=== PATIENT | female | born 1955 | race Caucasian/White ===

== ENCOUNTER → 2017-02-06 | Outpatient (CLI) | payer OTHER ==
[~2017-02-06] MED LIST: ESTR62CR PV; FLAG500T PO; NEXI40CA PO; OMEP10CASR PO; SUCR1SS PO; TYLE325T5 PO
[2017-02-06 12:02] LABS: MEAN CORPUSCULAR HGB CONC 33.5 g/dl (32.0-36.5); MEAN CORPUSCULAR VOLUME 89.5 fl (80.0-96.0); RED CELL DISTRIBUTION WIDTH 12.3 % (11.5-14.5); WHITE BLOOD COUNT 5.2 K/mm3 (4.0-10.0)
[2017-02-06 12:28] LABS: ALBUMIN/GLOBULIN RATIO 1.29 (1.00-1.93); ALKALINE PHOSPHATASE 73 U/L (45-117); ALT/SGPT 31 U/L (12-78); ANION GAP 7 MEQ/L (8-16); AST/SGOT 13 U/L (15-37); BILIRUBIN,TOTAL 0.4 MG/DL (0.2-1.0); BLOOD UREA NITROGEN 17 MG/DL (7-18); CALCIUM LEVEL 9.7 MG/DL (8.8-10.2); CARBON DIOXIDE LEVEL 28 MEQ/L (21-32); CHLORIDE LEVEL 109 MEQ/L (98-107); CHOLESTEROL LEVEL 266 MG/DL (<200); CREATININE FOR GFR 0.69 MG/DL (0.55-1.02); GLOMERULAR FILTRATION RATE > 60.0 (>45); GLUCOSE, FASTING 110 MG/DL (80-110); POTASSIUM SERUM 4.8 MEQ/L (3.5-5.1); SODIUM LEVEL 144 MEQ/L (136-145); TOTAL PROTEIN 7.1 GM/DL (6.4-8.2); TRIGLYCERIDES LEVEL 288 MG/DL (<150)
== END ==
LOC: M WUC 09:06
PROVIDERS: ATTEND Family Medicine
DX: R03.0 Elevated blood-pressure reading, without diagnosis of hypertension (principal)

== ENCOUNTER → 2017-03-05 | Outpatient (CLI) | payer OTHER ==
--- NOTE | 2017-03-06 08:19 | REP ---
PELVIC ULTRASOUND: CLINICAL: Endometrial thickening. COMPARISON: 08/13/2016. TECHNIQUE: Transabdominal pelvic ultrasound followed by transvaginal examination for better evaluation of the endometrium and adnexa. FINDINGS: The bladder is unremarkable and measures 9.1 x 6.8 x 8.4 cm. Heterogeneous anteverted uterus measures 5.9 x 2.1 x 4.1 cm and includes subcentimeter nabothian cysts as well as presumed subcentimeter posterior intramural/submucosal fibroid. The endometrial complex measures 5.6 mm thickness and is essentially unchanged compared to prior examination. No focal significant uterine or endometrial abnormalities otherwise noted. The right ovary is not visualized. Left ovary appears normal and measures 2.5 x 1.2 x 1.1 cm. No pelvic fluid or adnexa mass lesion. IMPRESSION: 1. Heterogeneous anteverted uterus as described above. The endometrial complex measures 5.6 mm thickness and is essentially unchanged. Small subcentimeter nabothian cysts and two cystic subcentimeter fibroids in the posterior intramural/submucosal region suggested. 2. Normal left ovary; right ovary not visualized.
== END ==
LOC: M WHC 09:00
PROVIDERS: ATTEND Nurse Practitioner Women's Health
DX: R93.8 Abnormal findings on diagnostic imaging of other specified body structures (principal)

== ENCOUNTER 2017-04-03 17:05 | Emergency (ER) | payer OTHER ==
[~2017-04-03] VITALS: Ht 154.9 cm; Wt 93.0 kg
[2017-04-03] MEDS ORDERED: ALPR0.25 (17:24)
[2017-04-03] MEDS ORDERED: ALIG4CAP PO (17:24)
[2017-04-03] MEDS ORDERED: ESOM0.1C (17:24)
[2017-04-03] MEDS ORDERED: VITA50003 (17:24)
[2017-04-03] MEDS ORDERED: ASPIRIN 81 MG CHEW TABLET PO ONE (17:45)
[2017-04-03 17:53] LABS: BASO % 0.5 % (0.0-1.0); EOS # 0.1 K/mm3 (0.0-0.50); EOS % 1.6 % (0.0-3.0); LARGE UNSTAINED CELL # 0.1 K/mm3 (0.0-0.4); LARGE UNSTAINED CELL % 1.4 % (0.0-4.0); LYMPH # 1.7 K/mm3 (1.5-4.5); LYMPH % 21.8 % (24.0-44.0); MEAN CORPUSCULAR HEMOGLOBIN 30.4 pg (27.0-33.0); MEAN CORPUSCULAR VOLUME 89.5 fl (80.0-96.0); MONO # 0.4 K/mm3 (0.0-0.8); MONO % 5.7 % (0.0-5.0); NEUTROPHILS # 5.1 K/mm3 (1.8-7.7); NEUTROPHILS % 68.9 % (36.0-66.0); PLATELET COUNT, AUTOMATED 289 k/mm3 (150-450); RED CELL DISTRIBUTION WIDTH 12.3 % (11.5-14.5); WHITE BLOOD COUNT 7.4 K/mm3 (4.0-10.0)
[2017-04-03 18:07] LABS: ALBUMIN/GLOBULIN RATIO 1.08 (1.00-1.93); ALKALINE PHOSPHATASE 77 U/L (45-117); ALT/SGPT 35 U/L (12-78); ANION GAP 5 MEQ/L (8-16); AST/SGOT 15 U/L (15-37); BILIRUBIN,DIRECT 0.1 MG/DL (0.0-0.2); BILIRUBIN,TOTAL 0.7 MG/DL (0.2-1.0); BLOOD UREA NITROGEN 11 MG/DL (7-18); CALCIUM LEVEL 9.4 MG/DL (8.8-10.2); CARBON DIOXIDE LEVEL 29 MEQ/L (21-32); CHLORIDE LEVEL 107 MEQ/L (98-107); CREATININE FOR GFR 0.71 MG/DL (0.55-1.02); GLOMERULAR FILTRATION RATE > 60.0 (>45); GLUCOSE, FASTING 101 MG/DL (80-110); POTASSIUM SERUM 3.7 MEQ/L (3.5-5.1); SODIUM LEVEL 141 MEQ/L (136-145); TOTAL PROTEIN 7.7 GM/DL (6.4-8.2)
[2017-04-03] MEDS ORDERED: LORazepam 2 MG/ML VIAL (J2060) IV STA (20:06)
[2017-04-03 21:03] VITALS: BP 163/88
--- NOTE | 2017-04-04 02:25 | REP ---
Clinical: Chest pain . Comparison: 06/11/2008 . Findings: The mediastinum and cardiac silhouette are stable and within normal limits for portable technique. The lung pérez are clear without acute consolidation, effusion, or pneumothorax. Skeletal structures are intact. Impression: Normal portable chest x-ray Signed by Rodri Bellamy MD 04/04/2017 02:17 A
--- NOTE | 2017-04-04 08:21 | ECGEPIP ---
Stationary ECG Study [facility] - ED Test Date: 2017-04-03 Pat Name: AMERICO MCGEE Department: Room: - Gender: F It Support Manager: YAMILETH : 1955 Requested By: José Ryan Order Number: [id number] Reading MD: Trinh Alba Measurements Intervals Ladd Rate: 61 P: 28 MD: 177 QRS: -25 QRSD: 98 T: -25 QT: 421 QTc: 427 Interpretive Statements SINUS RHYTHM BORDERLINE LEFT AXIS DEVIATION NSTTW ABNORMALITY NO PRIOR FOR COMPARISON Electronically Signed On 04-04-2017 8:21:51 EDT by Trinh Alba
== END 2017-04-03 21:05 | disposition short-term general hospital (02) ==
LOC: M ED 17:56
DX: I21.4 Non-ST elevation (NSTEMI) myocardial infarction (principal); I20.0 Unstable angina; R06.02 Shortness of breath; I10 Essential (primary) hypertension; E78.00 Pure hypercholesterolemia, unspecified; K21.9 Gastro-esophageal reflux disease without esophagitis; F41.9 Anxiety disorder, unspecified; Z86.19 Personal history of other infectious and parasitic diseases; Z79.899 Other long term (current) drug therapy; Z88.8 Allergy status to other drugs, medicaments and biological substances
CPT/HCPCS: 71010; 80048; 80076; 82550; 82553; 83880; 85025; 93005; 93041; 94760; 96374; 99285; J2060

== ENCOUNTER 2017-05-17 09:30 | Outpatient (RCR) | payer OTHER ==
[~2017-05-17 09:30] MED LIST changes: +ALIG4CAP PO; +ALPR0.25; +ESOM0.1C; +VITA1CAP40
== END 2017-05-27 ==
LOC: M CR 09:30
PROVIDERS: ATTEND Internal Medicine Cardiovascular Disease
DX: Z51.89 Encounter for other specified aftercare (principal); I25.10 Atherosclerotic heart disease of native coronary artery without angina pectoris; Z98.1 Arthrodesis status

== ENCOUNTER → 2017-05-31 | Outpatient (REF) | payer OTHER | LOC: M LAB REF 12:15 | PROVIDERS: ATTEND Physician Assistant | DX: R30.0 Dysuria (principal) ==

== ENCOUNTER → 2017-06-03 | Outpatient (CLI) | payer OTHER ==
[2017-06-03 14:12] LABS: MEAN CORPUSCULAR HEMOGLOBIN 30.5 pg (27.0-33.0); MEAN CORPUSCULAR HGB CONC 33.3 g/dl (32.0-36.5); MEAN CORPUSCULAR VOLUME 91.8 fl (80.0-96.0); RED CELL DISTRIBUTION WIDTH 12.4 % (11.5-14.5); WHITE BLOOD COUNT 5.5 K/mm3 (4.0-10.0)
[2017-06-03 14:35] LABS: CALCIUM LEVEL 9.8 MG/DL (8.8-10.2); CREATININE FOR GFR 1.04 MG/DL (0.55-1.02); GLOMERULAR FILTRATION RATE 57.2 (>45); POTASSIUM SERUM 4.4 MEQ/L (3.5-5.1)
== END ==
LOC: M WUC 11:05
PROVIDERS: ATTEND Physician Assistant
DX: I25.10 Atherosclerotic heart disease of native coronary artery without angina pectoris (principal); E87.6 Hypokalemia

== ENCOUNTER → 2017-06-20 | Outpatient (CLI) | payer OTHER ==
[2017-06-20 09:39] LABS: FREE T4 0.83 NG/DL (0.76-1.46); POTASSIUM SERUM 4.8 MEQ/L (3.5-5.1)
== END ==
LOC: M WUC 08:08
PROVIDERS: ATTEND Internal Medicine Cardiovascular Disease
DX: E78.00 Pure hypercholesterolemia, unspecified (principal); I10 Essential (primary) hypertension

== ENCOUNTER 2017-06-26 10:30 | Outpatient (RCR) | payer OTHER | END 2017-06-27 | LOC: M CR 10:30 | PROVIDERS: ATTEND Internal Medicine Cardiovascular Disease | DX: Z51.89 Encounter for other specified aftercare (principal); I25.10 Atherosclerotic heart disease of native coronary artery without angina pectoris; Z98.1 Arthrodesis status ==

== ENCOUNTER 2017-07-19 14:12 | Outpatient (RCR) | payer OTHER | END 2017-07-27 | LOC: M CR 14:12 | PROVIDERS: ATTEND Internal Medicine Cardiovascular Disease | DX: Z51.89 Encounter for other specified aftercare (principal); I25.10 Atherosclerotic heart disease of native coronary artery without angina pectoris; Z98.1 Arthrodesis status ==

== ENCOUNTER → 2017-07-23 | Outpatient (CLI) | payer OTHER ==
[2017-07-23 19:14] LABS: BASO % 0.5 % (0.0-1.0); EOS # 0.1 10^3/uL (0.0-0.50); EOS % 0.8 % (0.0-3.0); IMMATURE GRANULOCYTE % 0.3 % (0-0); LYMPH # 1.1 10^3/uL (1.5-4.5); LYMPH % 18.3 % (24.0-44.0); MEAN CORPUSCULAR HEMOGLOBIN 29.6 pg (27.0-33.0); MEAN CORPUSCULAR HGB CONC 31.9 g/dl (32.0-36.5); MEAN CORPUSCULAR VOLUME 92.6 fl (80.0-96.0); MONO # 0.4 10^3/uL (0.0-0.8); MONO % 6.2 % (0.0-5.0); NEUTROPHILS # 4.4 10^3/uL (1.8-7.7); NEUTROPHILS % 73.9 % (36.0-66.0); PLATELET COUNT, AUTOMATED 326 10^3/uL (150-450); RED CELL DISTRIBUTION WIDTH 12.9 % (11.5-14.5)
[2017-07-23 19:23] LABS: INR 1.01
== END ==
LOC: M WUC 15:54
PROVIDERS: ATTEND Family Medicine
DX: R04.0 Epistaxis (principal); E55.9 Vitamin D deficiency, unspecified

== ENCOUNTER 2017-08-02 15:13 | Outpatient (RCR) | payer OTHER | END 2017-08-27 | LOC: M CR 15:13 | PROVIDERS: ATTEND Internal Medicine Cardiovascular Disease | DX: Z51.89 Encounter for other specified aftercare (principal); I25.10 Atherosclerotic heart disease of native coronary artery without angina pectoris; Z98.1 Arthrodesis status ==

== ENCOUNTER 2017-09-05 11:35 | Outpatient (RCR) | payer SELFPAY | END 2017-09-26 | LOC: M CR 11:35 | PROVIDERS: ATTEND Internal Medicine Cardiovascular Disease | DX: I25.10 Atherosclerotic heart disease of native coronary artery without angina pectoris (principal) ==

== ENCOUNTER → 2017-09-17 | Outpatient (CLI) | payer OTHER ==
--- NOTE | 2017-09-17 10:56 | REPMRS ---
Patient History The patient states she had a clinical breast exam in Patient is postmenopausal and has history of other cancer at age 34. Family history of colorectal cancer in maternal aunt at age 50 or over, colorectal cancer in maternal grandmother at age 50 or over, and breast cancer in paternal grandmother under age 50. Took unspecified hormones for 6 months. Digital Woman Screen Mammo: September 17, 2017 - Exam #: [id number] Bilateral CC and MLO view(s) were taken. Technologist: Asia Palma, Technologist Prior study comparison: August 02, 2016, digital woman screen mammo performed at [facility]. January 25, 2015, digital woman screen mammo performed at [facility]. FINDINGS: There are scattered fibroglandular densities. There has been no change in the appearance of the mammogram from the prior studies. There is a mild amount of residual fibroglandular tissue which is fairly symmetric. There is no interval development of dominant mass, architectural distortion, or clustered microcalcification suggestive of malignancy. ASSESSMENT: BI-RADS/ACR category 1 mammogram. Negative. Recommendation Routine screening mammogram in 1 year (for women over age 40). This mammogram was interpreted with the aid of an FDA-approved computer-aided dectection system. Electronically Signed By: Pino Fagan MD 09/17/17 [id number]
== END ==
LOC: M WHC 08:59
PROVIDERS: ATTEND Nurse Practitioner Women's Health
DX: Z12.31 Encounter for screening mammogram for malignant neoplasm of breast (principal); Z78.0 Asymptomatic menopausal state; Z92.23 Personal history of estrogen therapy

== ENCOUNTER → 2017-09-17 | Outpatient (REF) | payer OTHER | LOC: M SFHCWAGY 09:11 | PROVIDERS: ATTEND Nurse Practitioner Women's Health | DX: Z12.4 Encounter for screening for malignant neoplasm of cervix (principal); Z12.31 Encounter for screening mammogram for malignant neoplasm of breast ==

== ENCOUNTER → 2017-10-05 | Outpatient (CLI) | payer OTHER ==
[2017-10-05 18:21] LABS: BASO % 0.6 % (0.0-1.0); EOS # 0.1 10^3/uL (0.0-0.50); EOS % 2.9 % (0.0-3.0); IMMATURE GRANULOCYTE % 0.2 % (0-0); LYMPH # 1.4 10^3/uL (1.5-4.5); LYMPH % 27.9 % (24.0-44.0); MEAN CORPUSCULAR HEMOGLOBIN 29.5 pg (27.0-33.0); MEAN CORPUSCULAR HGB CONC 31.2 g/dl (32.0-36.5); MEAN CORPUSCULAR VOLUME 94.7 fl (80.0-96.0); MONO # 0.4 10^3/uL (0.0-0.8); MONO % 8.2 % (0.0-5.0); NEUTROPHILS # 2.9 10^3/uL (1.8-7.7); NEUTROPHILS % 60.2 % (36.0-66.0); PLATELET COUNT, AUTOMATED 271 10^3/uL (150-450); RED CELL DISTRIBUTION WIDTH 13.2 % (11.5-14.5); WHITE BLOOD COUNT 4.9 10^3/uL (4.0-10.0)
[2017-10-05 18:33] LABS: ALBUMIN 4.1 GM/DL (3.2-5.2); ALBUMIN/GLOBULIN RATIO 1.37 (1.00-1.93); ALKALINE PHOSPHATASE 64 U/L (45-117); ALT/SGPT 30 U/L (12-78); ANION GAP 6 MEQ/L (8-16); AST/SGOT 17 U/L (7-37); BILIRUBIN,TOTAL 0.6 MG/DL (0.2-1.0); BLOOD UREA NITROGEN 19 MG/DL (7-18); CALCIUM LEVEL 9.4 MG/DL (8.8-10.2); CARBON DIOXIDE LEVEL 30 MEQ/L (21-32); CHLORIDE LEVEL 106 MEQ/L (98-107); CHOLESTEROL LEVEL 163 MG/DL (<200); CREATININE FOR GFR 0.71 MG/DL (0.55-1.02); GLOMERULAR FILTRATION RATE > 60.0 (>45); GLUCOSE, FASTING 107 MG/DL (80-110); POTASSIUM SERUM 4.4 MEQ/L (3.5-5.1); SODIUM LEVEL 142 MEQ/L (136-145); TOTAL PROTEIN 7.1 GM/DL (6.4-8.2); TRIGLYCERIDES LEVEL 163 MG/DL (<150)
== END ==
LOC: M WUC 08:56
PROVIDERS: ATTEND Family Medicine
DX: E55.9 Vitamin D deficiency, unspecified (principal); I25.10 Atherosclerotic heart disease of native coronary artery without angina pectoris

== ENCOUNTER → 2017-10-16 | Outpatient (CLI) | payer OTHER ==
--- NOTE | 2017-10-17 11:46 | REP ---
MRI brain without contrast: History: TIA. Right-sided numbness. Fasciculation, localized and transit in the right hand. No comparison brain imaging. Technique: Axial and sagittal imaging planes are utilized for T1 and T2-weighted scans. Sequences include spin-echo, fast spin echo, FLAIR, and diffusion weighted sequences. MRI findings: No bony calvarial lesion is seen. Craniocervical junction upper cervical cord are normal in appearance. There is no MR evidence of significant paranasal sinus disease. No intraorbital abnormality is seen. Deep facial soft tissues are unremarkable. Lateral third and fourth ventricles are normal in size and position. Fagan-white differentiation pattern is normal. There are scattered foci of T2 hyperintensity in the subcortical white matter of the frontal and parietal lobes bilaterally consistent with mild small vessel changes. There is no evidence of intracranial hemorrhage. No extra-axial fluid collection, mass, infarction or midline shift is seen. Diffusion weighted scans show no evidence to suggest acute ischemia or other cause of restricted diffusion. Impression: Minimal small vessel changes. No significant intracranial lesion. Signed by Aldo Carrion MD 10/17/2017 11:37 A
== END ==
LOC: M RAD 15:20
PROVIDERS: ATTEND Internal Medicine Cardiovascular Disease
DX: R25.3 Fasciculation (principal); R90.89 Other abnormal findings on diagnostic imaging of central nervous system

== ENCOUNTER 2017-12-23 13:10 | Outpatient (RCR) | payer SELFPAY | END 2017-12-25 | LOC: M CR 13:10 | DX: Z51.89 Encounter for other specified aftercare (principal); I25.10 Atherosclerotic heart disease of native coronary artery without angina pectoris; Z98.1 Arthrodesis status ==

== ENCOUNTER 2018-05-30 13:03 | Outpatient (RCR) | payer SELFPAY | END 2018-06-27 | LOC: M CR 13:03 | DX: Z95.5 Presence of coronary angioplasty implant and graft (principal); I25.10 Atherosclerotic heart disease of native coronary artery without angina pectoris ==

== ENCOUNTER → 2018-07-08 | Outpatient (CLI) | payer OTHER ==
[2018-07-08 12:41] LABS: BASO # 0.1 10^3/uL (0.0-0.2); BASO % 1.1 % (0.0-1.0); EOS # 0.2 10^3/uL (0.0-0.50); HEMATOCRIT 37.4 % (36.0-47.0); IMMATURE GRANULOCYTE % 0.4 % (0-3.0); LYMPH # 1.2 10^3/uL (1.5-4.5); LYMPH % 25.4 % (24.0-44.0); MEAN CORPUSCULAR HEMOGLOBIN 29.3 pg (27.0-33.0); MEAN CORPUSCULAR HGB CONC 32.1 g/dl (32.0-36.5); MEAN CORPUSCULAR VOLUME 91.2 fl (80.0-96.0); MONO # 0.3 10^3/uL (0.0-0.8); MONO % 6.8 % (0.0-5.0); NEUTROPHILS # 2.9 10^3/uL (1.8-7.7); NEUTROPHILS % 62.3 % (36.0-66.0); PLATELET COUNT, AUTOMATED 231 10^3/uL (150-450); WHITE BLOOD COUNT 4.7 10^3/uL (4.0-10.0)
[2018-07-08 13:22] LABS: ALBUMIN 3.9 GM/DL (3.2-5.2); ALKALINE PHOSPHATASE 65 U/L (45-117); ALT/SGPT 33 U/L (12-78); ANION GAP 8 MEQ/L (8-16); AST/SGOT 21 U/L (7-37); BILIRUBIN,TOTAL 0.5 MG/DL (0.2-1.0); BLOOD UREA NITROGEN 16 MG/DL (7-18); CALCIUM LEVEL 9.1 MG/DL (8.8-10.2); CARBON DIOXIDE LEVEL 27 MEQ/L (21-32); CHLORIDE LEVEL 111 MEQ/L (98-107); CREATININE FOR GFR 0.64 MG/DL (0.55-1.30); GLOMERULAR FILTRATION RATE > 60.0 (>45); GLUCOSE, FASTING 122 MG/DL (70-100); MAGNESIUM LEVEL 2.4 MG/DL (1.8-2.4); POTASSIUM SERUM 4.5 MEQ/L (3.5-5.1); SODIUM LEVEL 146 MEQ/L (136-145); TOTAL PROTEIN 6.8 GM/DL (6.4-8.2)
[2018-07-08 13:27] LABS: TOTAL 25(OH) VITAMIN D 22.7 NG/ML (30.0-100.0)
[2018-07-08 16:06] LABS: ALBUMIN/GLOBULIN RATIO 1.34 (1.00-1.93)
== END ==
LOC: M WUC 09:39
DX: R53.83 Other fatigue (principal); E55.9 Vitamin D deficiency, unspecified
CPT/HCPCS: 83735

== ENCOUNTER → 2018-10-09 | Outpatient (CLI) | payer OTHER | LOC: M WHC 14:00 | DX: Z12.31 Encounter for screening mammogram for malignant neoplasm of breast (principal); Z80.3 Family history of malignant neoplasm of breast; Z80.0 Family history of malignant neoplasm of digestive organs; Z92.29 Personal history of other drug therapy | CPT/HCPCS: 77067 ==

== ENCOUNTER → 2018-12-04 | Outpatient (CLI) | payer OTHER ==
[~2018-12-04] MED LIST changes: +ASPI81CH PO; +ATOR1TAB21; +CIPR-249 PO; +CLON1TAB8; +CLOP75TA2; +CO Q10CA PO; +FLUTISP; +METO1TAB87; +MIRA3350 PO; +NITR0.4S14; +NITR0.4S14 SL; +NORCOTAB PO; +PANT20TA2 PO; +PANT40TA3; +PROBCAP14 PO; +SERT-138 PO; -VITA1CAP40; +VITA50005; +ZOFR4TAB14 PO; +[UNRECOGNIZED DRUG - OTHER]
[2018-12-04 18:04] LABS: ALBUMIN 4.4 GM/DL (3.2-5.2); BLOOD UREA NITROGEN 15 MG/DL (7-18); CALCIUM LEVEL 9.4 MG/DL (8.8-10.2); CARBON DIOXIDE LEVEL 34 MEQ/L (21-32); CHLORIDE LEVEL 102 MEQ/L (98-107); CREATININE FOR GFR 0.79 MG/DL (0.55-1.30); GLOMERULAR FILTRATION RATE > 60.0 (>45); GLUCOSE, FASTING 112 MG/DL (70-100); PHOSPHORUS LEVEL 3.1 MG/DL (2.5-4.9); POTASSIUM SERUM 3.5 MEQ/L (3.5-5.1); SODIUM LEVEL 141 MEQ/L (136-145)
== END ==
LOC: M WUC 14:50
PROVIDERS: ATTEND Family Medicine
DX: R06.02 Shortness of breath (principal); I25.10 Atherosclerotic heart disease of native coronary artery without angina pectoris

== ENCOUNTER → 2019-01-20 | Outpatient (CLI) | payer OTHER ==
[2019-01-20 13:05] LABS: BASO # 0.1 10^3/uL (0.0-0.2); BASO % 0.8 % (0.0-1.0); EOS # 0.2 10^3/uL (0.0-0.50); EOS % 2.6 % (0.0-3.0); HEMATOCRIT 40.6 % (36.0-47.0); HEMOGLOBIN 12.9 g/dl (12.0-15.5); LYMPH # 1.5 10^3/uL (1.5-4.5); LYMPH % 22.5 % (24.0-44.0); MEAN CORPUSCULAR HEMOGLOBIN 28.9 pg (27.0-33.0); MEAN CORPUSCULAR HGB CONC 31.8 g/dl (32.0-36.5); MONO # 0.6 10^3/uL (0.0-0.8); MONO % 8.4 % (0.0-5.0); NEUTROPHILS # 4.3 10^3/uL (1.8-7.7); NEUTROPHILS % 65.5 % (36.0-66.0); PLATELET COUNT, AUTOMATED 260 10^3/uL (150-450); RED BLOOD COUNT 4.46 10^6/uL (4.00-5.40); WHITE BLOOD COUNT 6.6 10^3/uL (4.0-10.0)
[2019-01-20 13:28] LABS: ALBUMIN 4.2 GM/DL (3.2-5.2); ALT/SGPT 30 U/L (12-78); BILIRUBIN,TOTAL 0.7 MG/DL (0.2-1.0); BLOOD UREA NITROGEN 15 MG/DL (7-18); CALCIUM LEVEL 9.5 MG/DL (8.8-10.2); CARBON DIOXIDE LEVEL 30 MEQ/L (21-32); CHLORIDE LEVEL 106 MEQ/L (98-107); CHOLESTEROL LEVEL 223 MG/DL (<200); CHOLESTEROL RISK RATIO 4.955 (<5); GLOMERULAR FILTRATION RATE > 60.0 (>45); GLUCOSE, FASTING 137 MG/DL (70-100); HDL CHOLESTEROL 45 MG/DL (>40); LDL CHOLESTEROL 114 MG/DL (<100); NON-HDL-C 178 MG/DL; POTASSIUM SERUM 4.4 MEQ/L (3.5-5.1); SODIUM LEVEL 142 MEQ/L (136-145); TOTAL PROTEIN 7.2 GM/DL (6.4-8.2); TRIGLYCERIDES LEVEL 319 MG/DL (<150)
[2019-01-20 13:31] LABS: TOTAL 25(OH) VITAMIN D 20.2 NG/ML (30.0-100.0); VITAMIN B12 LEVEL 425 PG/ML (247-911)
== END ==
LOC: M WUC 08:32
PROVIDERS: ATTEND Family Medicine
DX: Z51.81 Encounter for therapeutic drug level monitoring (principal); Z79.899 Other long term (current) drug therapy; E55.9 Vitamin D deficiency, unspecified; I25.10 Atherosclerotic heart disease of native coronary artery without angina pectoris

== ENCOUNTER → 2019-07-16 | Outpatient (CLI) | payer OTHER ==
[~2019-07-16] MED LIST changes: -ASPI81CH PO; +ASPI81CH49 PO; +HYDR-3715 PO; -NORCOTAB PO
[2019-07-16 13:40] LABS: HEMATOCRIT 39.5 % (36.0-47.0); HEMOGLOBIN 12.7 g/dl (12.0-15.5); MEAN CORPUSCULAR HEMOGLOBIN 29.5 pg (27.0-33.0); MEAN CORPUSCULAR HGB CONC 32.2 g/dl (32.0-36.5); MEAN CORPUSCULAR VOLUME 91.9 fl (80.0-96.0); PLATELET COUNT, AUTOMATED 274 10^3/uL (150-450); WHITE BLOOD COUNT 5.9 10^3/uL (4.0-10.0)
[2019-07-16 13:45] LABS: ALBUMIN 4.1 GM/DL (3.2-5.2); ALT/SGPT 29 U/L (12-78); BILIRUBIN,TOTAL 0.5 MG/DL (0.2-1.0); BLOOD UREA NITROGEN 16 MG/DL (7-18); CALCIUM LEVEL 9.3 MG/DL (8.8-10.2); CARBON DIOXIDE LEVEL 30 MEQ/L (21-32); CHLORIDE LEVEL 104 MEQ/L (98-107); CHOLESTEROL LEVEL 180 MG/DL (<200); CREATININE FOR GFR 0.81 MG/DL (0.55-1.30); GLOMERULAR FILTRATION RATE > 60.0 (>45); GLUCOSE, FASTING 150 MG/DL (70-100); HDL CHOLESTEROL 50 MG/DL (>40); LDL CHOLESTEROL 85 MG/DL (<100); NON-HDL-C 130 MG/DL; SODIUM LEVEL 143 MEQ/L (136-145); TOTAL PROTEIN 7.3 GM/DL (6.4-8.2); TRIGLYCERIDES LEVEL 227 MG/DL (<150)
[2019-07-16 13:48] LABS: TOTAL 25(OH) VITAMIN D 25.1 NG/ML (30.0-100.0)
[2019-07-16 15:11] LABS: VITAMIN B12 LEVEL 249 PG/ML (247-911)
== END ==
LOC: M WUC 09:04
PROVIDERS: ATTEND Family Medicine
DX: E55.9 Vitamin D deficiency, unspecified (principal); I25.10 Atherosclerotic heart disease of native coronary artery without angina pectoris; R73.9 Hyperglycemia, unspecified; Z79.899 Other long term (current) drug therapy

== ENCOUNTER → 2019-10-12 | Outpatient (CLI) | payer MEDICARE, OTHER ==
--- NOTE | 2019-10-12 14:30 | REPMRS ---
Patient History The patient states she had a clinical breast exam in 2018. Family history of breast cancer under age 50 in paternal grandmother, colorectal cancer at age 50 or over in maternal aunt, colorectal cancer at age 50 or over in maternal grandmother. Took unspecified hormones for 6 months. Digital Woman Screen Mammo: October 12, 2019 - Exam #: [id number] Bilateral CC and MLO view(s) were taken. Technologist: Lizzeth Vieira, Technologist Prior study comparison: October 09, 2018, bilateral digital woman screen mammo performed at [facility]. September 17, 2017[facility], 2016, [facility] FINDINGS: There are scattered fibroglandular densities. There is a possible neodensity, 7 mm in diameter seen only on the craniocaudad projection images. This is not that newly apparent previously. This merits additional evaluation. There has been no other change in the appearance of the mammogram from the prior studies. There is a mild amount of scattered fibroglandular density which is fairly symmetric. There is no other interval development of dominant mass, architectural distortion, or grouped microcalcification suggestive of malignancy. 3-D tomosynthesis shows no additional findings. Assessment: BI-RADS/ACR category 0 mammogram, Incomplete: Need additional imaging evaluation and/or prior mammograms for comparison. Recommendation Ultrasound and special view mammogram of the right breast. This patient's Lifetime Breast Cancer Risk is estimated at 9.5 %. This mammogram was interpreted with the aid of an FDA-approved computer-aided dectection system. Electronically Signed By: Toni Carrion MD 10/12/19 [id number]
== END ==
LOC: M WHC 13:23
PROVIDERS: ATTEND Nurse Practitioner Women's Health
DX: Z12.31 Encounter for screening mammogram for malignant neoplasm of breast (principal)

== ENCOUNTER → 2019-10-13 | Outpatient (CLI) | payer MEDICARE, OTHER ==
--- NOTE | 2019-10-13 18:00 | REP ---
Digital diagnostic unilateral right breast mammography with CAD and focused right breast sonography: History: Screening mammography was BIRADS category zero from October 12, 2019. A 7 mm possible neodensity was seen. Comparison is also made with prior mammography from October 09, 2018 and September 17, 2017. Findings: Magnified focal spot compression CC, true MLO, and MLO views of the right breast demonstrate that the area in question compresses away to stromal elements which are felt to be unchanged from comparison mammography 2017. No spiculated density is seen. No microcalcification or architectural distortion is noted. Sonographic findings: The upper outer quadrant of the left breast is scanned sonographically. Fairly homogeneous fibroglandular elements are seen sonographically. No cyst is seen. No evidence of acoustic shadowing or architectural distortion is noted. No mass is visible. Impression: BIRADS category II benign findings. Repeat screening mammography recommended 1 year. BIRADS 2: BI-RADS/ACR category 2 mammogram. Benign Findings. This mammogram was interpreted with the aid of an FDA-approved computer-aided detection system. The patient states she had a clinical breast exam in October 16, 2019. The patient letter being requested is M1. Electronically Signed by Aldo Carrion MD 10/13/2019 07:07 P
== END ==
LOC: M RAD 13:40
PROVIDERS: ATTEND Nurse Practitioner Women's Health
DX: R92.2 Inconclusive mammogram (principal)

== ENCOUNTER → 2020-05-03 | Outpatient (CLI) | payer MEDICARE, OTHER ==
[~2020-05-03] MED LIST changes: -PANT20TA2 PO; +PANT20TA6 PO; +PANT40TA29; -PANT40TA3
[2020-05-03 13:04] LABS: HEMOGLOBIN 12.9 g/dl (12.0-15.5); MEAN CORPUSCULAR HEMOGLOBIN 28.7 pg (27.0-33.0); MEAN CORPUSCULAR HGB CONC 31.5 g/dl (32.0-36.5); MEAN CORPUSCULAR VOLUME 91.3 fl (80.0-96.0); PLATELET COUNT, AUTOMATED 269 10^3/uL (150-450); RED BLOOD COUNT 4.49 10^6/uL (4.00-5.40); WHITE BLOOD COUNT 6.2 10^3/uL (4.0-10.0)
[2020-05-03 16:21] LABS: BLOOD UREA NITROGEN 18 MG/DL (7-18); CALCIUM LEVEL 9.8 MG/DL (8.8-10.2); CARBON DIOXIDE LEVEL 30 MEQ/L (21-32); CHLORIDE LEVEL 106 MEQ/L (98-107); CHOLESTEROL LEVEL 233 MG/DL (<200); CHOLESTEROL RISK RATIO 5.065 (<5); CREATININE FOR GFR 0.95 MG/DL (0.55-1.30); GLOMERULAR FILTRATION RATE > 60.0 (>45); GLUCOSE, FASTING 147 MG/DL (70-100); HDL CHOLESTEROL 46 MG/DL (>40); LDL CHOLESTEROL 129 MG/DL (<100); NON-HDL-C 187 MG/DL; POTASSIUM SERUM 4.6 MEQ/L (3.5-5.1); SODIUM LEVEL 140 MEQ/L (136-145); TRIGLYCERIDES LEVEL 290 MG/DL (<150)
== END ==
LOC: M WUC 09:20
PROVIDERS: ATTEND Physician Assistant
DX: I25.10 Atherosclerotic heart disease of native coronary artery without angina pectoris (principal)

== ENCOUNTER → 2020-10-10 | Outpatient (CLI) | payer MEDICARE, OTHER ==
[2020-10-10 15:29] LABS: ALBUMIN 4.1 GM/DL (3.2-5.2); BILIRUBIN,DIRECT 0.2 MG/DL (0.0-0.2); BILIRUBIN,TOTAL 0.5 MG/DL (0.2-1.0); TOTAL PROTEIN 7.2 GM/DL (6.4-8.2)
== END ==
LOC: M WUC 09:35
PROVIDERS: ATTEND Physician Assistant
DX: K21.9 Gastro-esophageal reflux disease without esophagitis (principal); K57.92 Diverticulitis of intestine, part unspecified, without perforation or abscess without bleeding; K76.0 Fatty (change of) liver, not elsewhere classified

== ENCOUNTER → 2020-10-10 | Outpatient (CLI) | payer MEDICARE, OTHER ==
[2020-10-10 15:37] LABS: HEMOGLOBIN A1c 6.8 %
== END ==
LOC: M WUC 09:29
PROVIDERS: ATTEND Family Medicine
DX: K21.9 Gastro-esophageal reflux disease without esophagitis (principal); K57.92 Diverticulitis of intestine, part unspecified, without perforation or abscess without bleeding; K76.0 Fatty (change of) liver, not elsewhere classified; E11.9 Type 2 diabetes mellitus without complications

== ENCOUNTER → 2020-10-14 | Outpatient (CLI) | payer MEDICARE, OTHER ==
--- NOTE | 2020-10-14 08:13 | REPMRS ---
Patient History The patient states she has not had a clinical breast exam in over a year. Patient is postmenopausal and has history of other cancer at age 34. Family history of breast cancer under age 50 in paternal grandmother, colorectal cancer at age 50 or over in maternal aunt, colorectal cancer at age 50 or over in maternal grandmother. Took unspecified hormones for 6 months. Digital Woman Screen Mammo: October 14, 2020 - Exam #: [id number] Bilateral CC and MLO view(s) were taken. Technologist: Daria Alvares, Technologist Prior study comparison: October 13, 2019, right breast digital mammo diagnostic unilateral, performed at [facility]. October 12, 2019, bilateral digital woman screen mammo performed at [facility]. October 09, 2018, bilateral digital woman screen mammo performed at [facility]. September 17, 2017, digital woman screen mammo performed at [facility]. FINDINGS: There are scattered fibroglandular densities. The Volpara volumetric breast density category is:B. There has been no change in the appearance of the mammogram from the prior studies. There is a mild amount of scattered fibroglandular density which is fairly symmetric. There is no interval development of dominant mass, architectural distortion, or grouped microcalcification suggestive of malignancy. 3-D tomosynthesis shows no additional findings. Assessment: BI-RADS/ACR category 1 mammogram. Negative Mammogram. Recommendation Routine screening mammogram of both breasts in 1 year (for women over age 40). This patient's [facility] Lifetime Breast Cancer Risk is estimated at 9.0 %. This mammogram was interpreted with the aid of an FDA-approved computer-aided dectection system. Electronically Signed By: Toni Carrion MD 10/14/20 0830
== END ==
LOC: M WHC 07:09
PROVIDERS: ATTEND Nurse Practitioner Women's Health
DX: Z12.31 Encounter for screening mammogram for malignant neoplasm of breast (principal)

== ENCOUNTER → 2020-11-09 | Outpatient (CLI) | payer MEDICARE, OTHER ==
[2020-11-09 11:40] LABS: HEMATOCRIT 40.4 % (36.0-47.0); HEMOGLOBIN 12.7 g/dl (12.0-15.5); MEAN CORPUSCULAR HEMOGLOBIN 28.9 pg (27.0-33.0); MEAN CORPUSCULAR HGB CONC 31.4 g/dl (32.0-36.5); MEAN CORPUSCULAR VOLUME 91.8 fl (80.0-96.0); PLATELET COUNT, AUTOMATED 269 10^3/uL (150-450); WHITE BLOOD COUNT 6.3 10^3/uL (4.0-10.0)
[2020-11-09 12:19] LABS: ALBUMIN 4.2 GM/DL (3.2-5.2); ALT/SGPT 40 U/L (12-78); BILIRUBIN,TOTAL 0.5 MG/DL (0.2-1.0); BLOOD UREA NITROGEN 23 MG/DL (7-18); CALCIUM LEVEL 9.2 MG/DL (8.8-10.2); CARBON DIOXIDE LEVEL 32 MEQ/L (21-32); CHLORIDE LEVEL 104 MEQ/L (98-107); CHOLESTEROL LEVEL 194 MG/DL (<200); CHOLESTEROL RISK RATIO 3.803 (<5); CREATININE FOR GFR 0.84 MG/DL (0.55-1.30); GLOMERULAR FILTRATION RATE > 60.0 (>45); GLUCOSE, FASTING 161 MG/DL (70-100); HDL CHOLESTEROL 51 MG/DL (>40); LDL CHOLESTEROL 97 MG/DL (<100); NON-HDL-C 143 MG/DL; POTASSIUM SERUM 3.7 MEQ/L (3.5-5.1); SODIUM LEVEL 142 MEQ/L (136-145); TRIGLYCERIDES LEVEL 230 MG/DL (<150)
== END ==
LOC: M WUC 08:55
PROVIDERS: ATTEND Physician Assistant
DX: I50.32 Chronic diastolic (congestive) heart failure (principal)

== ENCOUNTER → 2021-05-09 | Outpatient (CLI) | payer MEDICARE, OTHER ==
[2021-05-09 08:25] LABS: HEMATOCRIT 40.7 % (36.0-47.0); HEMOGLOBIN 13.1 g/dl (12.0-15.5); MEAN CORPUSCULAR HEMOGLOBIN 28.6 pg (27.0-33.0); MEAN CORPUSCULAR HGB CONC 32.2 g/dl (32.0-36.5); MEAN CORPUSCULAR VOLUME 88.9 fl (80.0-96.0); PLATELET COUNT, AUTOMATED 262 10^3/uL (150-450); RED BLOOD COUNT 4.58 10^6/uL (4.00-5.40)
[2021-05-09 08:57] LABS: ALBUMIN 4.1 GM/DL (3.2-5.2); ALT/SGPT 52 U/L (12-78); BILIRUBIN,TOTAL 0.7 MG/DL (0.2-1.0); BLOOD UREA NITROGEN 13 MG/DL (7-18); CALCIUM LEVEL 9.2 MG/DL (8.8-10.2); CARBON DIOXIDE LEVEL 31 MEQ/L (21-32); CHLORIDE LEVEL 104 MEQ/L (98-107); CHOLESTEROL LEVEL 227 MG/DL (<200); GLOMERULAR FILTRATION RATE > 60.0 (>45); GLUCOSE, FASTING 136 MG/DL (70-100); HDL CHOLESTEROL 39 MG/DL (>40); LDL CHOLESTEROL 111 MG/DL (<100); NON-HDL-C 188 MG/DL; POTASSIUM SERUM 3.4 MEQ/L (3.5-5.1); SODIUM LEVEL 142 MEQ/L (136-145); TOTAL PROTEIN 7.4 GM/DL (6.4-8.2); TRIGLYCERIDES LEVEL 386 MG/DL (<150)
[2021-05-09 10:43] LABS: TOTAL 25(OH) VITAMIN D 25.8 NG/ML (30.0-100.0)
[2021-05-09 10:44] LABS: VITAMIN B12 LEVEL 377 PG/ML (247-911)
[2021-05-09 13:48] LABS: MALB URINE SIEMENS 36.5 MG/L; MAU/CREAT RATIO 11.1 MCG/MG (0.0-30.0)
== END ==
LOC: M LAB 07:37
PROVIDERS: ATTEND Family Medicine
DX: E55.9 Vitamin D deficiency, unspecified (principal); E78.00 Pure hypercholesterolemia, unspecified; R42 Dizziness and giddiness

== ENCOUNTER → 2021-05-09 | Outpatient (CLI) | payer MEDICARE, OTHER | LOC: M RAD 07:34 | PROVIDERS: ATTEND Physician Assistant | DX: R42 Dizziness and giddiness (principal) ==

== ENCOUNTER 2021-09-15 13:28 | Emergency (ER) | payer MEDICARE, OTHER ==
[~2021-09-15] VITALS: Ht 154.9 cm; Wt 96.8 kg
--- OUTSIDE RECORDS SUMMARY | 2021-09-15 13:40 | CCD | Continuity of Care Document ---
Author Author Fatuma WHITLOCK MD Organization Unknown Address [place] [address] Phone [phone] Care Team Providers Care Market Research Executive Name Role Phone Bishnu Castellanos MD AUTM [phone] Hazel Sharp MD AUTM [phone] Garcia Workman MD AUTM [phone] Dustin Lowry DO AUTM [phone] Higinio Wyatt MD AUTM [phone] Indy Gamboa AUTM [phone] Problems Active Problems Provider Date Electrocardiogram abnormal Js Whitlock MD Onset: 2016 Chest pain Js Whitlock MD Onset: 07/25/2017 Patient post percutaneous transluminal coronary angioplasty Js Whitlock MD Onset: 07/25/2017 Aortic valve disorder Js Whitlock MD Onset: 07/25/2017 Body mass index 30+ - obesity Js Whitlock MD Onset: Atherosclerotic heart disease of [place] coronary arter y without angina pectoris Js Whitlock MD Onset: 07/25/2017 Benign hypertensive heart disease without congestive h eart failure Js Whitlock MD Onset: 07/25/2017 Dietary management surveillance Js Whitlock MD Onset: 1 12/11/2016 Abnormal involuntary movement Js Whitlock MD Onset: Dyspnea LANA Rodriguez Onset: 09/25/2018 Chronic diastolic heart failure LANA Rodriguez Onset: 12/09/2018 Hypertensive heart disease with heart failure LANA Pfeiffer Onset: 12/09/2018 Palpitations LANA Rodriguez Onset: 01/22/2019 Obesity LANA Castle Onset: 10/27/2020 Social History Type Date Description Comments Sex Unknown ETOH Use Consumes Wine 2-3 glasses "onc e in a great while" ETOH Use Consumes Liquor 1 Candelaria's drink "once in a while" Tobacco Use Start: Unknown Patient has never smoked Smoking Status Reviewed: 04/26/21 Patient has never smoked Exercise Type/Frequency Does housework sporadica lly 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 Exercise Limitations Muscle Pain pain in jaw s, ears, both sides of neck Exercise Limitations Chest Discomfort heaviness occasionally or "pulled muscle" feeling near underarms or across top of breasts bilaterally Exercise Limitations Shortness Of Breath climbin g stairs Allergies and adverse reactions Active Allergies Criticality Reaction | Severity Comments Date Demerol Unable to assess criticality projectile v omiting 09/06/2009 Statins Unable to assess criticality intolerant 07/24/2017 Medications Active Medications SIG Qnty Indications Ordering Provide r Date Ocuvite Adult Formula Capsules 1 by mouth daily Unknown 07/04/2021 Coq-10 100mg Capsules 1 by mouth every day Unknown 04/14/2021 Atorvastatin Calcium 80mg Tablets take one tablet by mouth every night at bedtime 90tabs Faustino Anderson MD 05/05/2020 Pantoprazole Sodium 40mg Tablets D R 1 by mouth every day Garcia Workman MD 04/13/2020 Vitamin D3 1000Unit Capsules 1 by mouth every day Unknown 07/20/2019 Potassium Chloride ER 10Meq Tablet s ER take one tablet by mouth every day 90tabs I50.32 Faustino laboy MD 12/09/2018 Furosemide 40mg Tablets take one tablet by mouth every day 90tabs Js Whitlock MD 11/13/2018 Vagisil Maximum Strength 20-3% Cre am insert 1 applicator full vaginally as needed Indy Payne Arnp 07/21/2018 Tums Chewy Bites 750mg Chewtabs prn Unknown 06/24/2018 Miralax Powder mix powder into liquid and drink daily as directed Unknown 07/24/20 17 Nitrostat 0.4mg Tablets Sub 1 sl every 5min x3 as needed for chest pain 25tabs Js Whitlock MD 07/24/2017 Clopidogrel Bisulfate 75mg Tablets take one tablet by mouth every day 90tabs Js Whitlock MD 07/24/2017 Tylenol Extra Strength 500mg Table ts 1-2 by mouth as needed Unknown 07/24/2017 Metoprolol Tartrate 25mg Tablets take 1/2 tablet by mouth two times a day 90tabs Js Whitlock MD 07/24/2017 Clonazepam 1mg Tablets 1 tablet by mouth once a day at bedtime as needed Bishnu Castellanos MD 07/24/2017 Aspirin Ec 81mg Tablets DR 1 by mouth every day Dinorah Barragan NP 07/24/20 17 Sertraline HCL 100mg Tablets 1 by mouth every day Bishnu Castellanos MD 07/24/2017 Align 4mg Capsules 1 by mo [facility] every day Unknown 07/24/2017 Immunizations Description No Information Available Vital Signs Date Vital Result Comment 04/26/2021 10:53am Weight 199.00 lb Home Weight 197lb Height 61 inches 5'1" BMI (Body Mass Index) 37.6 kg/m2 Heart Rate 57 /min BP Systolic Sitting 118 mmHg Ra, large cuff BP Diastolic Sitting 74 mmHg Ra, large cuff 10/27/2020 9:45am Weight 205.00 lb Home Weight 202lb Height 61 inches 5'1" BMI (Body Mass Index) 38.7 kg/m2 Heart Rate 72 /min Respiratory Rate 16 /min nonlabored BP Systolic Sitting 132 mmHg Ra, large cuff BP Diastolic Sitting 84 mmHg Ra, large cuff Results Description No Information Available Procedures Date Code Description Status 07/06/2021 03505 Chronic Care MGMT 20 Mins Clinical Staff Time Per Calendar Month Completed 07/06/2021 99873 Chronic Care Management Services Ea Addl 20 Min Completed 05/10/2021 50323 TM Interpretation & Report Only Completed 05/10/2021 67148 Myocardial Imaging (PET) Multipl e Studies Completed 04/26/2021 60003 Office/Outpatient Established Mo d MDM 30-39 Min Completed 04/26/2021 74549 ECG 12-Lead Completed 04/14/2021 60811 Chronic Care MGMT 20 Mins Clinical Staff Time Per Calendar Month Completed 04/14/2021 85828 Chronic Care Management Services Ea Addl 20 Min Completed 03/02/2021 51372 Chronic Care MGMT 20 Mins Clinical Staff Time Per Calendar Month Completed Medical Devices Description No Information Available Encounters Type Date Location Provider Dx Diagnosis Office Visit 07/06/2021 2:27p Main Office Js Whitlock MD I50.32 Chronic diastolic (congestive) heart failure I11.0 Hypertensive heart disease w ith heart failure Office Visit 04/26/2021 10:45a Main Office LANA Castle I25 .10 Athscl heart disease of [place] coronary artery w/o ang pctrs I50.32 Chronic diastolic (congestiv e) heart failure I11.0 Hypertensive heart disease w ith heart failure I35.9 Nonrheumatic aortic valve di sorder, unspecified R94.31 Abnormal electrocardiogram [ ECG] [EKG] E66.8 Other obesity Z71.3 Dietary counseling and surve illance Office Visit 04/14/2021 2:29p Main Office Js Whitlock MD I50.32 Chronic diastolic (congestive) heart failure I25.10 Athscl heart disease of [place] coronary artery w/o ang pctrs Office Visit 03/02/2021 2:05p Main Office Js Whitlock MD I50.32 Chronic diastolic (congestive) heart failure E66.8 Other obesity Assessments Date Code Description Provider 07/06/2021 I50.32 Chronic diastolic (congestive) h eart failure Js Whitlock MD 07/06/2021 I11.0 Hypertensive heart disease with heart failure Js Whitlock MD 05/10/2021 I25.10 Atherosclerotic hear t disease of [place] coronary artery without angina pectoris Cardiac PET 04/26/2021 I25.10 Atherosclerotic heart disease of [place] coronary artery with LANA Castle 04/26/2021 I50.32 Chronic diastolic (congestive) h eart failure LANA Castle 04/26/2021 I11.0 Hypertensive heart disease with heart failure LANA Castle 04/26/2021 I35.9 Nonrheumatic aortic valve disord er, unspecified LANA Castle 04/26/2021 R94.31 Abnormal electrocardiogram [ECG] [EKG] LANA Castle 04/26/2021 E66.8 Other obesity LANA Gipson Cha, se 04/26/2021 Z71.3 Dietary counseling and surveilla nce LANA Castle 04/14/2021 I50.32 Chronic diastolic (congestive) h eart failure Js Whitlock MD 04/14/2021 I25.10 Atherosclerotic heart disease of [place] coronary artery with Js Whitlock MD 03/02/2021 I50.32 Chronic diastolic (congestive) h eart failure Js Whitlock MD 03/02/2021 E66.8 Other obesity Js Whitlock MD Plan of Treatment Future Appointment(s):* 10/26/2021 10:15 am - LANA Castle at Main Office 04/26/2021 - LANA Castle* I25.10 Atherosclerotic heart disease of [place] coronary artery with* Recommendations:* Cardiac PET ordered for further evaluation of her chest pain Continue aspirin, atorvastatin, Plavix, and metoprolol at the current dosages Advised patient to contact our office with any chest pain, shortness of breath, new or concerning symptoms * I50.32 Chronic diastolic (congestive) heart failure* Recommendations:* Continue furosemide and metoprolol at current dosages Please alert our office with a weight gain of more than 3 pounds, onset of shortness of breath, or lower extremity edema * I11.0 Hypertensive heart disease with heart failure* Recommendations:* Continue metoprolol and furosemide at the current dosages Advised patient to monitor blood pressures at home and to alert our office with readings >140/>90 * I35.9 Nonrheumatic aortic valve disorder, unspecified* Recommendations:* Plan for repeat echocardiogram [id number] * R94.31 Abnormal electrocardiogram [ECG] [EKG]* Recommendations:* No further evaluation is needed at this time. * E66.8 Other obesity * Z71.3 Dietary counseling and surveillance* Recommendations:* Recommended for patient to follow a more whole food diet. Advised patient to avoid overly processed foods and packaged foods. Advised patient to avoid sodas, juices and other liquid calories. Recommended at least 30 minutes of exercise 3 days a week. * All * Follow up:* Follow up in 6 months Schedule carotid US - ordered at the last visit Functional Status Functional Condition Comment Date Status Independent with all ADL's Activ e Mental Status Description No Information Available Referrals Description No Information Available
--- OUTSIDE RECORDS SUMMARY | 2021-09-15 13:40 | CCD | Continuity of Care Document ---
Author Author Fatuma KWON PA-C Organization Unknown Address [address] [place] [address] Phone [phone] Care Team Providers Care Authorization Specialist Name Role Phone Bishnu Castellanos MD AUT [phone] Problems Active Problems Provider Date Essential hypertension LANA Deutsch Onset: 05/04/20 19 Pure hypercholesterolemia LANA Deutsch Onset: 05/04 Social History Type Date Description Comments Sex Unknown ETOH Use Occasionally consumes alcohol Tobacco Use Start: Unknown Patient has never smoked Allergies, Adverse Reactions, Alerts Active Allergies Criticality Reaction | Severity Comments Date Demerol Unable to assess criticality 05/01/2019 Medications Active Medications SIG Qnty Indications Ordering Provide r Date Potassium Chloride ER 10Meq Capsul es ER 1 by mouth every day Unknown Atorvastatin Calcium 40mg Tablets Unknown Furosemide 40mg Tablets Unknown Sertraline HCL 100mg Tablets Unknown Clonazepam 1mg Tablets Unknown Co Q-10 200mg Capsules 1 by mouth every day Unknown Aspirin [address] Unknown Clopidogrel Bisulfate 75mg Tablets Unknown Pantoprazole Sodium 20mg Tablets DR Unknown Vitamin D3 1000Unit Capsules 1 by mouth every day Unknown Metoprolol Tartrate 25mg Tablets Unknown Align Prebiotic-Probiotic 5-1.25mg-GM Chewtabs Unknown Ibgard 90mg Capsules ER Unknown Immunizations Description No Information Available Vital Signs Date Vital Result Comment 08/31/2019 8:46am Body Temperature 98.9 F Height 60 inches 5'0" Weight 210.00 lb BMI (Body Mass Index) 41.0 kg/m2 05/21/2019 9:20am Height 60 inches 5'0" Weight 201.00 lb BMI (Body Mass Index) 39.3 kg/m2 Results Description No Information Available Procedures Date Code Description Status 07/19/202137834 Inject/Drain Joint/Bursa Major C ompleted 04/17/202188235 Inject/Drain Joint/Bursa Major C ompleted Medical Devices Description No Information Available Encounters Type Date Location Provider Dx Diagnosis Office Visit 07/19/2021 9:00a Winonaryanne Kwon PA-C M1 7.12 Unilateral primary osteoarthritis, left knee M23.222 Derang of post horn of media l mensc d/t old tear/inj, l knee Office Visit 04/17/2021 10:15a Jed Kwon PA-C M1 7.12 Unilateral primary osteoarthritis, left knee M23.222 Derang of post horn of media l mensc d/t old tear/inj, l knee Assessments Date Code Description Provider 07/19/2021 M17.12 Unilateral primary osteoarthriti s, left knee Mohan Kwon PA-C 07/19/2021 M23.222 Derangement of poste rior horn of medial meniscus due to old tear or injury, left knee Mohan Kwon PA-C 04/17/2021 M17.12 Unilateral primary osteoarthriti s, left knee Mohan Kwon PA-C 04/17/2021 M23.222 Derangement of poste rior horn of medial meniscus due to old tear or injury, left knee Mohan Kwon PA-C Plan of Treatment 07/19/2021 - Mohan Kwon PA-C* M17.12 Unilateral primary osteoarthritis, left knee* Follow up:* 3 month jennifer knee recheck w/BMS, please x-ray jennifer knees (4 views) * M23.222 Derangement of posterior horn of medial meniscus due to old tear or injury, left knee Functional Status Description No Information Available Mental Status Description No Information Available Referrals Description No Information Available
--- OUTSIDE RECORDS SUMMARY | 2021-09-15 13:40 | CCD ---
Author Author [facility] Organization [facility] Address Unknown Phone Unavailable Care Team Providers Care Child Care Education Coordinator Name Role Phone Cleve WATT MD Unavailable Unavailable Cleve WATT MD Unavailable Unavailable Cleve WATT MD Unavailable Unavailable Cleve WATT MD Unavailable Unavailable Cleve WATT MD Unavailable Unavailable Cleve WATT MD Unavailable Unavailable Cleve WATT MD Unavailable Unavailable Cleve WATT MD Unavailable Unavailable Cleve WATT MD Unavailable Unavailable Cleve WATT MD Unavailable Unavailable Cleve WATT MD Unavailable Unavailable Cleve WATT MD Unavailable Unavailable Cleve WATT MD Unavailable Unavailable Cleve WATT MD Unavailable Unavailable Cleve WATT MD Unavailable Unavailable Cleve WATT MD Unavailable Unavailable Cleve WATT MD Unavailable Unavailable Cleve WATT MD Unavailable Unavailable Cleve WATT MD Unavailable Unavailable Cleve WATT MD Unavailable Unavailable Cleve WATT MD Unavailable Unavailable Cleve WATT MD Unavailable Unavailable Cleve WATT MD Unavailable Unavailable Cleve WATT MD Unavailable Unavailable Cleve WATT MD Unavailable Unavailable Cleve WATT MD Unavailable Unavailable Cleve WATT MD Unavailable Unavailable Cleve WATT MD Unavailable Unavailable Cleve WATT MD Unavailable Unavailable Cleve WATT MD Unavailable Unavailable Cleve WATT MD Unavailable Unavailable Cleve WATT MD Unavailable Unavailable Cleve WATT MD Unavailable Unavailable Cleve WATT MD Unavailable Unavailable Cleve WATT MD Unavailable Unavailable Cleve WATT MD Unavailable Unavailable Cleve WATT MD Unavailable Unavailable Cleve WATT MD Unavailable Unavailable Cleve WATT MD Unavailable Unavailable Cleve WATT MD Unavailable Unavailable Cleve WATT MD Unavailable Unavailable Cleve WATT MD Unavailable Unavailable Cleve WATT MD Unavailable Unavailable Cleve WATT MD Unavailable Unavailable Cleve WATT MD Unavailable Unavailable Cleve WATT MD Unavailable Unavailable Cleve WATT MD Unavailable Unavailable Cleve WATT MD Unavailable Unavailable Cleve WATT MD Unavailable Unavailable Cleve WATT MD Unavailable Unavailable Cleve WATT MD Unavailable Unavailable Cleve WATT MD Unavailable Unavailable Cleve WATT MD Unavailable Unavailable Cleve WATT MD Unavailable Unavailable Kwon, M Barratt PA Unavailable Unavailable Kwon, M Barratt PA Unavailable Unavailable Kwon, M Barratt PA Unavailable Unavailable Kwon, M Barratt PA Unavailable Unavailable Kwon, M Barratt PA Unavailable Unavailable Kwon, M Barratt PA Unavailable Unavailable Kwon, M Barratt PA Unavailable Unavailable Kwon, M Barratt PA Unavailable Unavailable Kwon, M Barratt PA Unavailable Unavailable Kwon, M Barratt PA Unavailable Unavailable Kwon, M Barratt PA Unavailable Unavailable Kwon, M Barratt PA Unavailable Unavailable Kwon, M Barratt PA Unavailable Unavailable Kwon, M Barratt PA Unavailable Unavailable Kwon, M Barratt PA Unavailable Unavailable Kwon, M Barratt PA Unavailable Unavailable Kwon, M Barratt PA Unavailable Unavailable Kwon, M Barratt PA Unavailable Unavailable Kwon, M Barratt PA Unavailable Unavailable Kwon, M Barratt PA Unavailable Unavailable Kwon, M Barratt PA Unavailable Unavailable Kwon, M Barratt PA Unavailable Unavailable Kwon, M Barratt PA Unavailable Unavailable Kwon, M Barratt PA Unavailable Unavailable Kwon, M Barratt PA Unavailable Unavailable Kwon, M Barratt PA Unavailable Unavailable Kwon, M Barratt PA Unavailable Unavailable Kwon, M Barratt PA Unavailable Unavailable Kwon, M Barratt PA Unavailable Unavailable JUAN CARLOS, L DANNA PA Unavailable Unavailable JUAN CARLOS, L DANNA PA Unavailable Unavailable JUAN CARLOS, L DANNA PA Unavailable Unavailable JUAN CARLOS, L DANNA PA Unavailable Unavailable JUAN CARLOS, L DANNA PA Unavailable Unavailable JUAN CARLOS, L DANNA PA Unavailable Unavailable JUAN CARLOS, L DANNA PA Unavailable Unavailable JUAN CARLOS, L DANNA PA Unavailable Unavailable JUAN CARLOS, L DANNA PA Unavailable Unavailable JUAN CARLOS, L DANNA PA Unavailable Unavailable JUAN CARLOS, L DANNA PA Unavailable Unavailable JUAN CARLOS, L DANNA PA Unavailable Unavailable JUAN CARLOS, L DANNA PA Unavailable Unavailable JUAN CARLOS, L DANNA PA Unavailable Unavailable JUAN CARLOS, L DANNA PA Unavailable Unavailable JUAN CARLOS, L DANNA PA Unavailable Unavailable Re-disclosure Warning The records that you are about to access may contain information from federally-assisted alcohol or drug abuse programs. If such information is present, then the following federally mandated warning applies: This information has been disclosed to you from records protected by federal confidentiality rules (42 CFR part 2). The federal rules prohibit you from making any further disclosure of this information unless further disclosure is expressly permitted by the written consent of the person to whom it pertains or as otherwise permitted by 42 CFR part 2. A general authorization for the release of medical or other information is NOT sufficient for this purpose. The Federal rules restrict any use of the information to criminally investigate or prosecute any alcohol or drug abuse patient.The records that you are about to access may contain highly sensitive health information, the redisclosure of which is protected by Article 27-F of the [facility] Public Health law. If you continue you may have access to information: Regarding HIV / AIDS; Provided by facilities licensed or operated by the [facility] Office of Mental Health; or Provided by the [facility] Office for People With Developmental Disabilities. If such information is present, then the following [facility] mandated warning applies: This information has been disclosed to you from confidential records which are protected by state law. State law prohibits you from making any further disclosure of this information without the specific written consent of the person to whom it pertains, or as otherwise permitted by law. Any unauthorized further disclosure in violation of state law may result in a fine or senior living sentence or both. A general authorization for the release of medical or other information is NOT sufficient authorization for further disc losure. Family History Family Member Name Family Member Gender Family Member Status Date o f Status Description Data Source(s) Unknown Unknown Problem [facility] patients mother Unknown Male Problem [facility] ([facility]) Unknown Unknown Problem [facility] ([facility]) mother,mgf Encounters Encounter Providers Location Date Indications Data Source(s ) Office Visit Attender: Mohan SCHWARTZ Physical Therapy 09:00:00 AM EDT MED[facility] ([facility]) Office Visit Attender: NAOMI WATT MD Main Office 07/06/2021 02:27:0 0 PM EDT [facility] ([facility]) Outpatient Attender: DANNA SCHWARTZ Main Office 04/26/2021 1 0:45:00 AM EDT [facility] ([facility]) Office Visit Attender: Mohan SCHWARTZ Physical Therapy 10:15:00 AM EDT MED[facility] ([facility]) Office Visit Attender: NAOMI WATT MD Main Office 04/14/2021 02:29:0 0 PM EDT [facility] ([facility]) Office Visit Attender: NAOMI WATT MD Main Office 03/02/2021 02:05:0 0 PM EDT MED[facility] ([facility]) Office Visit Attender: NAOMI WATT MD Main Office 12/29/2020 10:16:0 0 AM EST MED[facility] ([facility]) Office Visit Attender: NAOMI WATT MD Main Office 11/23/2020 08:06:0 0 AM EST MED[facility] ([facility]) Outpatient Attender: DANNA SCHWARTZ Main Office 10/27/2020 0 8:45:00 AM EST MED[facility] ([facility]) Outpatient Attender: Mohan SCHWARTZ Physical Therapy 08:15:00 AM EST MED[facility] ([facility]) Office Visit Attender: NAOMI WATT MD Main Office 10/12/2020 10:52:0 0 AM EST [facility] ([facility]) Unknown [address] [facility] [address] 09/27/2020 12:00:00 AM EST eCW1 ([facility]) Office Visit Attender: NAOMI WATT MD Main Office 09/07/2020 01:25:0 0 PM EST MED[facility] ([facility]) Office Visit Attender: NAOMI WATT MD Main Office 08/04/2020 01:44:0 0 PM EDT MED[facility] ([facility]) Immunizations Vaccine Date Status Description Data Source(s) COVID-19 VACCINE Moderna 01/05/2021 12:00:00 AM EST completed [facility] Vaccine Series Complete: YESThis Data wa s Submitted to [facility] Via [employer]. COVID-19 VACCINE Moderna 12/07/2020 12:00:00 AM EST completed [facility] Vaccine Series Complete: NOThis Data was Submitted to [facility] Via [employer]. Medications Medication Brand Name Start Date Product Form Dose Route Admi nistrative Instructions Pharmacy Instructions Status Indications Reaction Description Data Source(s) 1 mg 07/17/2021 12:00:00 AM EDT tablet 30 TAKE ONE TABLET BY MOUTH AT BEDTIME NEEDED MAXIMUM DAILY DOSE = 1 TAKE ONE TABLET BY MOUTH AT BEDTIME NEEDED MAXIMUM DAILY DOSE = 1 SOLD: 07/19/2021 [facility] 100 mg 07/05/2021 12:00:00 AM EDT tablet 30 TAKE ONE TABLET BY MOUTH EVERY DAY TAKE ONE TABLET BY MOUTH EVERY DAY SOLD: 07/10/2021 [facility] Ocuvite Adult Formula 07/04/2021 12:00:00 AM EDT ORAL active MED[facility] ([facility]) 1 mg 06/16/2021 12:00:00 AM EDT tablet 30 TAKE 1 TAB.BY MOUTH DAILY AT BEDTIME NEEDED MAX DAILY DOSE = 1 TABLET TAKE 1 TAB.BY MOUTH DAILY AT BEDTIME NEEDED MAX DAILY DOSE = 1 TABLET SOLD: 06/17/2021 [facility] 80 mg 06/14/2021 12:00:00 AM EDT tablet 90 TAKE 1 TABLET BY MOUTH EVERY NIGHT AT BEDTIME TAKE 1 TABLET BY MOUTH EVERY NIGHT AT BEDTIME SOLD: 06/14/20 21 [facility] 80 mg 06/14/2021 12:00:00 AM EDT tablet 90 TAKE 1 TABLET BY MOUTH EVERY NIGHT AT BEDTIME TAKE 1 TABLET BY MOUTH EVERY NIGHT AT BEDTIME SOLD: 09/10/20 21 [facility] pantoprazole 40 MG Delayed Release Oral Tablet PANTOPRAZOLE SODIUM 05/31/2021 12:00:00 AM EDT tablet,delayed release (DR/EC) 90 T MANUEL 1 TABLET BY MOUTH DAILY TAKE 1 TABLET BY MOUTH DAILY SOLD: 05/31/2021 [facility] 1 mg 05/18/2021 12:00:00 AM EDT tablet 30 TAKE 1 TABLET BY MOUTH DAILY AT BEDTIME NEEDED MAX DAILY DOSE = 1 TABLET TAKE 1 TABLET BY MOUTH DAILY AT BEDTIME NEEDED MAX DAILY DOSE = 1 TABLET SOLD: 05/19/2021 [facility] 50 mcg (2,000 unit) 05/12/2021 12:00:00 AM EDT tablet 90 TAKE ONE TABLET BY MOUTH EVERY DAY TAKE ONE TABLET BY MOUTH EVERY DAY SOLD: 05/16/2021 [facility] 1 mg 04/17/2021 12:00:00 AM EDT tablet 30 TAKE ONE TABLET BY MOUTH AT BEDTIME NEEDED MAXIMUM DAILY DOSE = 1 TABLET TAKE ONE TABLET BY MOUTH AT BEDTIME NEEDED MAXIMUM DAILY DOSE = 1 TABLET SOLD: 04/19/2021 [facility] coenzyme Q10 100 MG Oral Capsule Coq-10 04/14/2021 12:00:00 AM EDT ORAL active [facility] ([facility]) 25 mg 04/10/2021 12:00:00 AM EDT tablet 90 TAKE ONE-HALF TABLET BY MOUTH TWICE A DAY TAKE ONE-HALF TABLET BY MOUTH TWICE A DAY SOLD: 07/10/2021 [facility] 25 mcg (1,000 unit) 04/10/2021 12:00:00 AM EDT tablet 90 TAKE 1 TABLET BY MOUTH ONCE A DAY TAKE 1 TABLET BY MOUTH ONCE A DAY SOLD: 04/12/2021 [facility] 25 mg 04/10/2021 12:00:00 AM EDT tablet 90 TAKE ONE-HALF TABLET BY MOUTH TWICE A DAY TAKE ONE-HALF TABLET BY MOUTH TWICE A DAY SOLD: 04/12/2021 [facility] 25 mcg (1,000 unit) 04/10/2021 12:00:00 AM EDT tablet 90 TAKE 1 TABLET BY MOUTH ONCE A DAY TAKE 1 TABLET BY MOUTH ONCE A DAY SOLD: 07/10/2021 [facility] 1 mg 03/16/2021 12:00:00 AM EDT tablet 30 TAKE 1 TABLET BY MOUTH NIGHTLY AT BEDTIME NEEDED MAX DAILY DOSE = 1 TABLET TAKE 1 TABLET BY MOUTH NIGHTLY AT BEDTIME NEEDED MAX DAILY DOSE = 1 TABLET SOLD: 03/18/2021 [facility] 0.4 mg 03/03/2021 12:00:00 AM EDT tablet, sublingual 25 PLACE 1 TAB.UNDER TONGUE EVERY 5MIN.UP TO 3 DOSES NEEDED FOR CHEST PAIN PLACE 1 TAB.UNDER TONGUE EVERY 5MIN.UP TO 3 DOSES NEEDED FOR CHEST PAIN SOLD: 03/07/2021 [facility] 75 mg 02/27/2021 12:00:00 AM EDT tablet 90 TAKE ONE TABLET BY MOUTH EVERY DAY TAKE ONE TABLET BY MOUTH EVERY DAY SOLD: 09/04/2021 [facility] 75 mg 02/27/2021 12:00:00 AM EDT tablet 90 TAKE ONE TABLET BY MOUTH EVERY DAY TAKE ONE TABLET BY MOUTH EVERY DAY SOLD: 05/31/2021 [facility] 75 mg 02/27/2021 12:00:00 AM EDT tablet 90 TAKE ONE TABLET BY MOUTH EVERY DAY TAKE ONE TABLET BY MOUTH EVERY DAY SOLD: 03/02/2021 [facility] 1 mg 02/14/2021 12:00:00 AM EDT tablet 30 TAKE ONE TABLET BY MOUTH AT BEDTIME NEEDED MAXIMUM DAILY DOSE = 1 TABLET TAKE ONE TABLET BY MOUTH AT BEDTIME NEEDED MAXIMUM DAILY DOSE = 1 TABLET SOLD: 02/15/2021 [facility] 100 mg 01/31/2021 12:00:00 AM EDT tablet 30 TAKE ONE TABLET BY MOUTH EVERY DAY TAKE ONE TABLET BY MOUTH EVERY DAY SOLD: 06/08/2021 [facility] 100 mg 01/31/2021 12:00:00 AM EDT tablet 30 TAKE ONE TABLET BY MOUTH EVERY DAY TAKE ONE TABLET BY MOUTH EVERY DAY SOLD: 04/07/2021 [facility] 100 mg 01/31/2021 12:00:00 AM EDT tablet 30 TAKE ONE TABLET BY MOUTH EVERY DAY TAKE ONE TABLET BY MOUTH EVERY DAY SOLD: 02/06/2021 [facility] 100 mg 01/31/2021 12:00:00 AM EDT tablet 30 TAKE ONE TABLET BY MOUTH EVERY DAY TAKE ONE TABLET BY MOUTH EVERY DAY SOLD: 05/07/2021 [facility] 100 mg 01/31/2021 12:00:00 AM EDT tablet 30 TAKE ONE TABLET BY MOUTH EVERY DAY TAKE ONE TABLET BY MOUTH EVERY DAY SOLD: 03/07/2021 [facility] 1 mg 01/12/2021 12:00:00 AM EDT tablet 30 TAKE ONE TABLET BY MOUTH AT BEDTIME IF NEEDED MAX OF 1 PER DAY TAKE ONE TABLET BY MOUTH AT BEDTIME IF N EEDED MAX OF 1 PER DAY SOLD: 01/14/2021 [facility] 25 mcg (1,000 unit) 01/06/2021 12:00:00 AM EST tablet 90 TAKE 1 TABLET BY MOUTH ONCE A DAY TAKE 1 TABLET BY MOUTH ONCE A DAY SOLD: 01/07/2021 [facility] 1 mg 12/14/2020 12:00:00 AM EST tablet 30 TAKE ONE TABLET BY MOUTH AT BEDTIME NEEDED MAXIMUM DAILY DOSE = 1 TABLET TAKE ONE TABLET BY MOUTH AT BEDTIME NEEDED MAXIMUM DAILY DOSE = 1 TABLET SOLD: 12/15/2020 [facility] Potassium Chloride 10 MEQ Extended Release Oral Tablet POTAS SIUM CHLORIDE 12/13/2020 12:00:00 AM EST tablet extended release 90 TAKE ONE TABLET BY MOUTH EVERY DAY TAKE ONE TABLET BY MOUTH EVERY DAY SOLD: 03/14/2021 [facility] Potassium Chloride 10 MEQ Extended Release Oral Tablet POTAS SIUM CHLORIDE 12/13/2020 12:00:00 AM EST tablet extended release 90 TAKE ONE TABLET BY MOUTH EVERY DAY TAKE ONE TABLET BY MOUTH EVERY DAY SOLD: 09/10/2021 [facility] Potassium Chloride 10 MEQ Extended Release Oral Tablet POTAS SIUM CHLORIDE 12/13/2020 12:00:00 AM EST tablet extended release 90 TAKE ONE TABLET BY MOUTH EVERY DAY TAKE ONE TABLET BY MOUTH EVERY DAY SOLD: 06/12/2021 [facility] Potassium Chloride 10 MEQ Extended Release Oral Tablet POTAS SIUM CHLORIDE 12/13/2020 12:00:00 AM EST tablet extended release 90 TAKE ONE TABLET BY MOUTH EVERY DAY TAKE ONE TABLET BY MOUTH EVERY DAY SOLD: 12/15/2020 [facility] 1 mg 11/14/2020 12:00:00 AM EST tablet 30 TAKE ONE TABLET BY MOUTH AT BEDTIME NEEDED MAXIMUM DAILY DOSE = 1 TAKE ONE TABLET BY MOUTH AT BEDTIME NEEDED MAXIMUM DAILY DOSE = 1 SOLD: 11/15/2020 [facility] pantoprazole 40 MG Delayed Release Oral Tablet PANTOPRAZOLE SODIUM 11/11/2020 12:00:00 AM EST tablet,delayed release (DR/EC) 90 T MANUEL ONE TABLET BY MOUTH EVERY DAY TAKE ONE TABLET BY MOUTH EVERY DAY SOLD: 11/13/2020 [facility] pantoprazole 40 MG Delayed Release Oral Tablet PANTOPRAZOLE SODIUM 11/11/2020 12:00:00 AM EST tablet,delayed release (DR/EC) 90 T MANUEL ONE TABLET BY MOUTH EVERY DAY TAKE ONE TABLET BY MOUTH EVERY DAY SOLD: 02/15/2021 [facility] 40 mg 10/31/2020 12:00:00 AM EST tablet 90 TAKE ONE TABLET BY MOUTH EVERY DAY TAKE ONE TABLET BY MOUTH EVERY DAY SOLD: 02/06/2021 [facility] 40 mg 10/31/2020 12:00:00 AM EST tablet 90 TAKE ONE TABLET BY MOUTH EVERY DAY TAKE ONE TABLET BY MOUTH EVERY DAY SOLD: 05/07/2021 [facility] 40 mg 10/31/2020 12:00:00 AM EST tablet 90 TAKE ONE TABLET BY MOUTH EVERY DAY TAKE ONE TABLET BY MOUTH EVERY DAY SOLD: 11/06/2020 [facility] 1 mg 10/13/2020 12:00:00 AM EST tablet 30 TAKE ONE TABLET BY MOUTH DAILY AT BEDTIME NEEDED MAXIMUM DAILY DOSE = 1 TABLET TAKE ONE TABLET BY MOUTH DAILY AT BEDTIME NEEDED MAXIMUM DAILY DOSE = 1 TABLET SOLD: 10/14/2020 [facility] 1 mg 09/13/2020 12:00:00 AM EST tablet 30 TAKE ONE TABLET BY MOUTH AT BEDTIME NEEDED MAXIMUM DAILY DOSE = 1 TABLET TAKE ONE TABLET BY MOUTH AT BEDTIME NEEDED MAXIMUM DAILY DOSE = 1 TABLET SOLD: 09/14/2020 [facility] 100 mg 07/22/2020 12:00:00 AM EDT tablet 30 TAKE ONE TABLET BY MOUTH EVERY DAY FOR 30 DAYS TAKE ONE TABLET BY MOUTH EVERY DAY FOR 30 DAYS SOLD: 021 [facility] 100 mg 07/22/2020 12:00:00 AM EDT tablet 30 TAKE ONE TABLET BY MOUTH EVERY DAY FOR 30 DAYS TAKE ONE TABLET BY MOUTH EVERY DAY FOR 30 DAYS SOLD: [facility] 100 mg 07/22/2020 12:00:00 AM EDT tablet 30 TAKE ONE TABLET BY MOUTH EVERY DAY FOR 30 DAYS TAKE ONE TABLET BY MOUTH EVERY DAY FOR 30 DAYS SOLD: 021 [facility] 100 mg 07/22/2020 12:00:00 AM EDT tablet 30 TAKE ONE TABLET BY MOUTH EVERY DAY FOR 30 DAYS TAKE ONE TABLET BY MOUTH EVERY DAY FOR 30 DAYS SOLD: 020 [facility] 100 mg 07/22/2020 12:00:00 AM EDT tablet 30 TAKE ONE TABLET BY MOUTH EVERY DAY FOR 30 DAYS TAKE ONE TABLET BY MOUTH EVERY DAY FOR 30 DAYS SOLD: 021 [facility] 100 mg 07/22/2020 12:00:00 AM EDT tablet 30 TAKE ONE TABLET BY MOUTH EVERY DAY FOR 30 DAYS TAKE ONE TABLET BY MOUTH EVERY DAY FOR 30 DAYS SOLD: 020 [facility] 25 mcg (1,000 unit) 07/11/2020 12:00:00 AM EDT tablet 90 TAKE ONE TABLET BY MOUTH EVERY DAY TAKE ONE TABLET BY MOUTH EVERY DAY SOLD: 10/10/2020 [facility] atorvastatin 80 MG Oral Tablet ATORVASTATIN CALCIUM 05/05/2020 1 2:00:00 AM EDT tablet 90 TAKE 1 TABLET BY MOUTH EVERY NIG HT AT BEDTIME TAKE 1 TABLET BY MOUTH EVERY NIGHT AT BEDTIME SOLD: 08/05/2020 [facility] 80 mg 05/05/2020 12:00:00 AM EDT tablet 90 TAKE 1 TABLET BY MOUTH EVERY NIGHT AT BEDTIME TAKE 1 TABLET BY MOUTH EVERY NIGHT AT BEDTIME SOLD: 02/07/20 21 [facility] 80 mg 05/05/2020 12:00:00 AM EDT tablet 90 TAKE 1 TABLET BY MOUTH EVERY NIGHT AT BEDTIME TAKE 1 TABLET BY MOUTH EVERY NIGHT AT BEDTIME SOLD: 11/06/19 21 [facility] 25 mg 03/22/2020 12:00:00 AM EDT tablet 90 TAKE 1/2 TABLET BY MOUTH TWO TIMES A DAY TAKE 1/2 TABLET BY MOUTH TWO TIMES A DAY SOLD: 09/20/2020 [facility] 25 mg 03/22/2020 12:00:00 AM EDT tablet 90 TAKE 1/2 TABLET BY MOUTH TWO TIMES A DAY TAKE 1/2 TABLET BY MOUTH TWO TIMES A DAY SOLD: 12/21/2020 [facility] 75 mg 01/29/2020 12:00:00 AM EDT tablet 90 TAKE ONE TABLET BY MOUTH EVERY DAY TAKE ONE TABLET BY MOUTH EVERY DAY SOLD: 07/30/2020 [facility] BLOOD SUGAR DIAGNOSTIC 01/06/2020 12:00:00 AM EDT strip 100 USE TO CHECK BLOOD GLUCOSE ONCE DAILY DIRECTED USE TO CHECK BLOOD GLUCOSE ONCE DAILY DIRECTED SOLD: 09/25/2020 [facility] Potassium Chloride 10 MEQ Extended Release Oral Tablet POTAS SIUM CHLORIDE 12/05/2019 12:00:00 AM EST tablet extended release 90 TAKE ONE TABLET BY MOUTH EVERY DAY TAKE ONE TABLET BY MOUTH EVERY DAY SOLD: 09/13/2020 [facility] Insurance Providers Payer name Policy type / Coverage type Policy ID Covered alliance party ID Covered alliance party's relationship to ramirez Policy Ramirez Plan Information [employer] [id number] Hayley [id number] [employer] [id number] Hayley [id number] [employer] U [id number] Self [id number] [employer] [id number] SP [id number] [facility] Commercial [id number] Self [id number] [employer] [id number] SP [id number] [facility] [id number] SP [id number] [facility] Commercial [id number] S elf [id number] [employer]-Commercial [id number] [facility] Commercial [id number] S elf [id number] [employer] [id number] SP [id number] [facility] Commercial [id number] S elf [id number] SELF PAY ONLY [id number] SP [id number] [facility] Commercial [id number] S elf [id number] [facility] Ppo Medigap Part B [id number] Self [id number] [employer] ([employer]) [id number] Self [id number] [employer] (H[employer]) [id number] Self [id number] [facility] o Commercial [id number] Self [id number] SELF PAY ONLY [id number] SP [id number] [employer] (HMO) [id number] Self [id number] [employer] (O) [id number] Self [id number] [facility] Commercial [id number] S elf [id number] R [facility] [id number] SP [id number] [employer] Commercial [id number] Self [id number] [employer] PI PI UMR O [id number] S [id number] MEDICARE C [id number] S [id number] [employer] [id number] [employer] [id number] [employer] [id number] SP [id number] [employer] [id number] SP [id number] [employer] [id number] SP [id number] [employer] O [id number] S [id number] [employer] O [id number] S [id number] [employer] PPO P [id number] S [id number] MEDICARE [id number] SP [id number] Problems, Conditions, and Diagnoses Code Display Name Description Problem Type Effective Dates Data Source(s) E66.8 Obesity Obesity Problem 10/27/2020 12:00:00 AM JACKIE BUSBY ([facility]) Surgeries/Procedures Procedure Description Date Indications Data Source(s) ARTHROCENTESIS ASPIR&/INJECTION MAJOR JT/BURSA 021 12:00:00 AM EDT MEDISAAC ([facility] ) OFFICE OUTPATIENT VISIT 25 MINUTES 07/19/2021 12:00:00 AM EDT MED[facility] ([facility] ) Chronic Care Management Services Ea Addl 20 Min 2020 12:00:00 AM EDT MED[facility] ([facility]) Chronic Care MGMT 20 Mins Clinical Staff Time Per Calendar M ont 07/06/2021 12:00:00 AM EDT [facility] ([facility]) MYOCRD IMAGE PET PERFUS MULTPL STUDY REST/STRESS 05/10 12:00:00 AM EDT MED[facility] ([facility]) CV STRS TST XERS&/OR RX CONT ECG I&R ONLY 05/10/2021 1 2:00:00 AM EDT MED[facility] ([facility]) ECG ROUTINE ECG W/LEAST 12 LDS W/I&R 04/26/2021 12:00: 00 AM EDT MED[facility] ([facility]) OFFICE OUTPATIENT VISIT 25 MINUTES 04/26/2021 12:00:00 AM EDT MED[facility] ([facility]) ARTHROCENTESIS ASPIR&/INJECTION MAJOR JT/BURSA 021 12:00:00 AM EDT MED[facility] ([facility] ) Chronic Care Management Services Ea Addl 20 Min 2020 12:00:00 AM EDT MED[facility] ([facility]) Chronic Care MGMT 20 Mins Clinical Staff Time Per Calendar M [facility] 04/14/2021 12:00:00 AM EDT [facility] ([facility]) Chronic Care MGMT 20 Mins Clinical Staff Time Per Calendar M [facility] 03/02/2021 12:00:00 AM EDT [facility] ([facility]) Chronic Care Management Services Ea Addl 20 Min 2020 12:00:00 AM EST [facility] ([facility]) Chronic Care MGMT 20 Mins Clinical Staff Time Per Calendar M [facility] 12/29/2020 12:00:00 AM EST [facility] ([facility]) ECHO TTHRC R-T 2D W/WOM-MODE COMPL SPEC&COLR DOP 11/30 12:00:00 AM EST [facility] ([facility]) Chronic Care Management Services Ea Addl 20 Min 2020 12:00:00 AM EST [facility] ([facility]) Chronic Care MGMT 20 Mins Clinical Staff Time Per Calendar M [facility] 11/23/2020 12:00:00 AM EST [facility] ([facility]) ECG ROUTINE ECG W/LEAST 12 LDS W/I&R 10/27/2020 12:00: 00 AM EST [facility] ([facility]) OFFICE OUTPATIENT VISIT 25 MINUTES 10/27/2020 12:00:00 AM EST [facility] ([facility]) ARTHROCENTESIS ASPIR&/INJECTION MAJOR JT/BURSA 020 12:00:00 AM EST [facility] ([facility]) Results ID Date Data Source [id number] 09/06/2021 12:00:00 AM EST [facility] Name Value Range Interpretation Code Description Data Camille rce(s) Supporting Document(s) SARS-CoV-2 (COVID-19) RNA [Presence] in Respiratory specimen by CARLA with probe detection Not detected [facility] This lab was ordered by [facility] and r eported by [facility]. ID Date Data Source [id number] 09/06/2021 12:00:00 AM EST [facility] Name Value Range Interpretation Code Description Data Camille rce(s) Supporting Document(s) SARS-COV 2 PCR (NASAL SWAB) NEGATIVE [place] [facility] This lab was ordered by Rashaad Zacarias #15 and reported by [facility]. ID Date Data Source [id number] 08/01/2021 01:10:00 PM EDT [facility] Name Value Range Interpretation Code Description Data Camille rce(s) Supporting Document(s) [id number] NOT DETECTED [facility] A Not Detected result means that SARS-Co V-2 RNA was notpresent in the specimen above the limit of detection.A Not Detected result does not rule out the possibilityof COVID-19 and should not be used as the sole basis fortreatment or patient management decisions. If COVID-19is still suspected, based on exposure history togetherwith other clinical findings, re-testing should beconsidered in the context of clinical observations andepidemiological data for patient management decisions.Test Method: Nucleic Acid Amplification Test includingreverse circle beveler polymerase chain reaction (RT-PCR)and transcr iption mediated amplification (TMA). The testmethod meets the [place] Centers for Disease Control andprevention (CDC) pre departure and arrival requirementfor viral test for COVID-19 dated November 24, 2020.Testing requirements for traveling may change with time.The patient is responsible for determining the testrequirements for each nation while they are traveling.This test has been authorized by the FDA under anEmergency Use Authorization (EUA) for use by authorizedlaboratories.Please review the "Fact Sheets" and FDA authorizedlabeling available for health care providers andpatients using the following websites:https://www.[employer]stream/home/Covid-19/HCP/NAAT/fact-behbr4wjsz s://www.[employer]/home/Covid-19/Patients/NAAT/fact-vmkvg7Tlk to the current public health emergency, [facility] is accepting samples from appropriateclinical sources collected using wide variety ofswabs and transport media for COVID-19. Not detectedtest results derived from specimens received in non-commercially manufactured viral collection kits or thosenot yet authorized by FDA for COVID-19 testing should becautiously evaluated and take extra precautions such asadditional clinical monitoring, including collectionof an additional specimen.Additional information about COVID-19 can be foundat the [employer] website:www.[facility].MediaXstream/Covid19. ID Date Data Source [id number] 07/31/2021 12:19:00 PM EDT [facility] Name Value Range Interpretation Code Description Data Camille rce(s) Supporting Document(s) SARS-COV-2 RNA RESP QL CARLA+PROBE Not detected [facility] This lab was ordered by [facility] [id number] and rep orted by [facility] [place]. ID Date Data Source [id number] 11/30/2020 09:07:00 AM EST [facility] Name Value Range Interpretation Code Description Data Camille rce(s) Supporting Document(s) Laboratory test finding (navigational concept) Laboratory test result [facility] ([facility]) ID Date Data Source [id number] 11/09/2020 10:18:00 AM EST [facility]) Name Value Range Interpretation Code Description Data Camille rce(s) Supporting Document(s) White Blood Count 6.3 4.3-10.9 [facility] Red Blood Count 4.40 4.70-6.20 [facility] Hemoglobin 12.7 13.0-17.0 [facility] ([facility]) Hematocrit 40.4 39.0-50.0 [facility] ([facility]) Platelets 269 130-400 [facility] ID Date Data Source [id number] 11/09/2020 10:18:00 AM EST [facility] ([facility] Name Value Range Interpretation Code Description Data Camille rce(s) Supporting Document(s) Triglycerides 230 [facility] ([facility] Cholesterol 194 120-200 [facility] ([facility]) Cholesterol in LDL [Mass/volume] in Serum or Plasma by calculation 97 [facility] ([facility]) HDL 51 40-60 [facility] Chol/HDL Ratio 3.803 [facility] ID Date Data Source [id number] 11/09/2020 10:18:00 AM EST [facility] ([facility] Name Value Range Interpretation Code Description Data Camille rce(s) Supporting Document(s) Albumin [Mass/volume] in Serum or Plasma 4.2 [facility] ([facility]) Alanine aminotransferase [Enzymatic activity/volume] in Serum or Pl asma 40 [facility] ([facility]) Calcium [Mass/volume] in Serum or Plasma 9.2 [facility] ([facility]) Chloride [Moles/volume] in Serum or Plasma 104 [facility] ([facility]) Carbon dioxide, total [Moles/volume] in Serum or Plasma 32 [facility] ([facility]) Potassium [Moles/volume] in Serum or Plasma 3.7 [facility] ([facility]) Alkaline phosphatase [Enzymatic activity/volume] in Serum or Plasma 9 9 [facility] ([facility]) Protein [Mass/volume] in Serum or Plasma 7.0 [facility] ([facility]) Sodium 142 [facility] Urea nitrogen [Mass/volume] in Serum or Plasma 23 [facility] ([facility]) Glucose 161 70-100 [facility] Aspartate aminotransferase [Enzymatic activity/volume] in Serum or Plasma 17 [facility] ([facility]) Creatinine For GFR 0.84 [facility] ([facility]) ID Date Data Source [id number] 10/10/2020 09:33:00 AM EST [facility] ([facility]) Name Value Range Interpretation Code Description Data Camille rce(s) Supporting Document(s) Hemoglobin A1c 6.8 % [facility]) <content>REFERENCE RANGES:</content><br/ ><content></content>
<content><=5.6% NORMAL</content>
<content>5.7-6.4% SUGGESTS IMPAIRED GLUCOSE METABOLISM/PREDIABETIC</content>
<content>>= 6.5% ABNORMAL</content>
<content></content> Estimated Average Glucose 148 mg/dL 60-110 [facility] ([facility]) ID Date Data Source [id number] 10/10/2020 09:33:00 AM EST [facility] ([facility]) Name Value Range Interpretation Code Description Data Camille rce(s) Supporting Document(s) Alt/SGPT 32 U/L 12-78 [facility] Alkaline Phosphatase 109 U/L 45-117 [facility] Ast/Sgot 14 U/L 7-37 [facility] Bilirubin,Direct 0.2 mg/dL 0.0-0.2 [facility] ([facility]) Total Protein 7.2 GM/DL 6.4-8.2 [facility] ([facility] Bilirubin,Total 0.5 mg/dL 0.2-1.0 [facility] Albumin/Globulin Ratio 1.3 1.2-2.2 [facility] ([facility]) Albumin 4.1 GM/DL 3.2-5.2 [facility] Procedure Social History Code Duration Value Status Description Data Source(s ) Smoking 04/26/2021 12:00:00 AM EDT Patient has never smoked co mpleted Patient has never smoked [facility] ([facility]) Vital Signs ID Date Data Source UNK Name Value Range Interpretation Code Description Data Source(s) Body weight 199.00 [lb_av] 199.00 [lb_av] [facility] T ([facility]) Body height 61 [in_i] 61 [in_i] [facility] ([facility]) 5'1" Body mass index (BMI) [Ratio] 37.6 kg/m2 37.6 k g/m2 [facility] ([facility]) Heart rate 57 /min 57 /min [facility] ([facility]) Systolic blood pressure--sitting 118 mm[Hg] 118 mm[Hg] [facility] ([facility]) Ra, large cuff Diastolic blood pressure--sitting 74 mm[Hg] 74 mm[Hg] [facility] ([facility]) Ra, large cuff Body weight 205.00 [lb_av] 205.00 [lb_av] [facility] T ([facility]) Body height 61 [in_i] 61 [in_i] [facility] ([facility]) 5'1" Body mass index (BMI) [Ratio] 38.7 kg/m2 38.7 k g/m2 [facility] ([facility]) Heart rate 72 /min 72 /min [facility]) Respiratory rate 16 /min 16 /min [facility] ( [facility]) nonlabored Systolic blood pressure--sitting 132 mm[Hg] 132 mm[Hg] [facility] ([facility]) Ra, large cuff Diastolic blood pressure--sitting 84 mm[Hg] 84 mm[Hg] [facility] ([facility]) Ra, large cuff
--- OUTSIDE RECORDS SUMMARY | 2021-09-15 13:40 | CCD | Continuity of Care Document ---
Author Author Fatuma KWON PA-C Organization Unknown Address [address] [place] [address] Phone [phone] Care Team Providers Care Auto Transmission Technician Name Role Phone Bishnu Castellanos MD AUT [phone] Problems Active Problems Provider Date Essential hypertension [...] Information Available Procedures Date Code Description Status 07/19/2021 73434 Office/Outpatient Established Mo d MDM 30-39 Min Completed 07/19/202172683 Inject/Drain Joint/Bursa Major C ompleted 04/17/202132932 Inject/Drain Joint/Bursa Major C ompleted Medical Devices Description No Information Available Encounters Type Date Location Provider Dx Diagnosis Office Visit 07/19/2021 9:00a Jed Kwon PA-C M1 7.12 Unilateral primary [...]
--- OUTSIDE RECORDS SUMMARY | 2021-09-15 13:40 | CCD | Continuity of Care Document ---
Author Author Fatuma WHITLOCK MD Organization Unknown Address [facility] [place] [address] Phone [phone] Care Team Providers Care Lathe Turner Name Role Phone Bishnu Castellanos MD AUTM [phone] Hazel Sharp MD AUTM [phone] Garcia Workman MD AUTM [phone] Dustin Lowry DO AUTM [phone] Higinio Wyatt MD AUTM [phone] Indy Gamboa AUTM [phone] Problems Active Problems Provider Date Electrocardiogram abnormal Js Whitlock MD Onset: 2016 Chest pain Js Whitlock MD Onset: 07/25/2017 Patient post percutaneous transluminal coronary angioplasty Js Whitlock MD Onset: 07/25/2017 Aortic valve disorder Js Whitlock MD Onset: 07/25/2017 Body mass index 30+ - obesity Js Whitlock MD Onset: 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 Js [...] Type/Frequency Does housework sporadica lly Exercise 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 Exercise Limitations Muscle Pain pain in [...] 07/24/2017 Align 4mg Capsules 1 by mo [facility] every day Unknown 07/24/2017 Immunizations Description No [...] Available Procedures Date Code Description Status 07/06/2021 20272 Chronic Care MGMT 20 Mins Clinical Staff Time Per Calendar Month Completed 07/06/2021 67065 Chronic Care Management Services Ea Addl 20 Min Completed 05/10/2021 25217 TM Interpretation & Report Only Completed 05/10/2021 71178 Myocardial Imaging (PET) Multipl e Studies Completed 04/26/2021 93095 Office/Outpatient Established Mo d MDM 30-39 Min Completed 04/26/2021 51806 ECG 12-Lead Completed 04/14/2021 27686 Chronic Care MGMT 20 Mins Clinical Staff Time Per Calendar Month Completed 04/14/2021 07924 Chronic Care Management Services Ea Addl 20 Min Completed 03/02/2021 05495 Chronic Care MGMT 20 Mins Clinical Staff Time Per Calendar Month Completed Medical Devices Description No Information Available Encounters Type Date Location Provider Dx Diagnosis Office Visit 07/06/2021 2:27p Main Office Js Whitlock MD I50.32 Chronic diastolic (congestive) heart failure I11.0 Hypertensive heart disease w ith heart failure Office Visit 04/26/2021 10:45a Main Office [facility] I25 .10 Athscl heart disease of ambler coronary artery w/o ang pctrs I50.32 Chronic [...] Hypertensive heart disease with heart failure Js Whiltock MD 05/10/2021 I25.10 Atherosclerotic hear t disease of ambler coronary artery without angina pectoris Cardiac PET 04/26/2021 I25.10 Atherosclerotic heart disease of ambler coronary artery with [facility] 04/26/2021 I50.32 [...] MD 04/14/2021 I25.10 Atherosclerotic heart disease of ambler coronary artery with Js Whitlock MD 03/02/2021 I50.32 Chronic diastolic (congestive) h eart failure Js Whitlock MD 03/02/2021 E66.8 Other obesity Js Whitlock MD Plan of Treatment Future Appointment(s):* 10/26/2021 10:15 am - [facility] at Main Office 04/26/2021 - [facility]* I25.10 Atherosclerotic heart disease of ambler coronary artery with* Recommendations:* Cardiac PET ordered [...] disorder, unspecified* Recommendations:* Plan for repeat echocardiogram [id number] * R94.31 Abnormal electrocardiogram [ECG] [EKG]* Recommendations:* [...]
--- NOTE | 2021-09-15 15:24 | REP ---
INDICATION: R/O DVT COMPARISON: None. TECHNIQUE: Fagan scale and color Doppler evaluation using linear high frequency transducer. FINDINGS: Ultrasound examination of the right and left lower extremity deep venous structures from the common femoral vein through the popliteal veins demonstrates normal compressibility flow and wave patterns in response to respiration and augmentation. There is no evidence for deep venous thrombosis. IMPRESSION: No evidence for deep venous thrombosis. <Electronically signed by Rodri Bellamy > 09/15/21 0034
[2021-09-15 21:44] VITALS: BP 166/88
--- OUTSIDE RECORDS SUMMARY | 2021-09-15 22:18 | CCD ---
Author Author [facility] Organization [facility] Address Unknown Phone Unavailable Care Team Providers Care Chemical Pathologist Name Role Phone Cleve WATT MD Unavailable [...] Unavailable Cleve WATT MD Unavailable Unavailable Cleve WTAT MD Unavailable Unavailable Cleve WATT MD Unavailable [...] is protected by Article 27-F of the [facility] Public Health law. If you continue you may have access to information: Regarding HIV / AIDS; Provided by facilities licensed or operated by the [facility] Office of Mental Health; or Provided by the [facility] Office for People With Developmental Disabilities. If such information is present, then the following [facility] mandated warning applies: This information has been [...] law may result in a fine or prison sentence or both. A general authorization for the release of medical or other information is NOT sufficient authorization for further disc losure. Family History Family Member Name Family Member Gender Family Member Status Date o f Status Description Data Source(s) Unknown Unknown Problem [facility] patients mother Unknown Male Problem [facility] ([facility]) Unknown Unknown Problem [facility] ([facility]) mother,mgf Encounters Encounter Providers Location Date Indications Data Source(s ) Office Visit Attender: Mohan SCHWARTZ Physical Therapy 09:00:00 AM EDT MED[facility] ([facility]) Office Visit Attender: NAOMI WATT MD Main Office 07/06/2021 02:27:0 0 PM EDT [facility] ([facility]) Outpatient Attender: DANNA SCHWARTZ Main Office 04/26/2021 1 0:45:00 AM EDT [facility] ([facility]) Office Visit Attender: Mohan SCHWARTZ Physical Therapy 10:15:00 AM EDT [facility] ([facility]) Office Visit Attender: NAOMI WATT MD Main Office 04/14/2021 02:29:0 0 PM EDT [facility] ([facility]) Office Visit Attender: NAOMI WATT MD Main Office 03/02/2021 02:05:0 0 PM EDT [facility] ([facility]) Office Visit Attender: NAOMI WATT MD Main Office 12/29/2020 10:16:0 0 AM EST [facility] ([facility]) Office Visit Attender: NAOMI WATT MD Main Office 11/23/2020 08:06:0 0 AM EST [facility] ([facility]) Outpatient Attender: DANNA SCHWARTZ Main Office 10/27/2020 0 8:45:00 AM EST [facility] ([facility]) Outpatient Attender: Mohan SCHWARTZ Physical Therapy 08:15:00 AM EST [facility] ([facility]) Office Visit Attender: NAOMI WATT MD Main Office 10/12/2020 10:52:0 0 AM EST [facility] ([facility]) [place] [address] [address] 09/27/2020 12:00:00 AM EST eCW1 ([facility]) Office Visit Attender: NAOMI WATT MD Main Office 09/07/2020 01:25:0 0 PM EST MED[facility] ([facility]) Office Visit Attender: NAOMI WATT MD Main Office 08/04/2020 01:44:0 0 PM EDT MED[facility] ([facility]) Immunizations Vaccine Date Status Description Data Source(s) COVID-19 VACCINE Moderna 01/05/2021 12:00:00 AM EST completed [facility] Vaccine Series Complete: YESThis Data wa s Submitted to [facility] Via [facility]. COVID-19 VACCINE Moderna 12/07/2020 12:00:00 AM EST completed [facility] Vaccine Series Complete: NOThis Data was Submitted to [facility] Via [facility]. Medications Medication Brand Name Start Date Product [...] AM EDT ORAL active MED[facility] ([facility]) 1 mg 06/16/2021 12:00:00 AM EDT tablet [...] ORAL active [facility] ([facility]) 25 mg 04/10/2021 12:00:00 AM EDT tablet [...] TABLET BY MOUTH EVERY DAY SOLD: 06/08/2021 [facility] 100 mg 01/31/2021 12:00:00 AM [...] BY MOUTH EVERY DAY SOLD: 11/13/2020 [facility] pantoprazole 40 MG Delayed Release Oral Tablet [...] type / Coverage type Policy ID Covered libertarian ID Covered libertarian's relationship to ramirez Policy Ramirez Plan Information [employer] [id number] Hayley [id number] [employer] [id number] Hayley [id number] [employer] U [id number] Self [id number] [employer] [id number] SP [id number] [facility] Commercial [id number] Self [id number] [employer] [id number] SP [id number] [facility] [id number] SP [id number] [facility] Commercial [id number] S elf [id number] [employer]SI-Commercial [id number] [facility] Commercial [id number] S elf [id number] [employer] [id number] SP [id number] [facility] Commercial [id number] S elf [id number] SELF PAY ONLY [id number] SP [id number] [facility] Commercial [id number] S elf [id number] [facility] Ppo Medigap Part B [id number] Self [id number] [employer] (HMO) [id number] Self [id number] [employer] (HMO) [id number] Self [id number] [facility] o Commercial [id number] Self [id number] SELF PAY ONLY [id number] SP [id number] [employer] (HMO) [id number] Self [id number] [employer] (O) [id number] Self [id number] [facility] Commercial [id number] S elf [id number] R [facility] [id number] SP [id number] [employer] Commercial [id number] Self [id number] [employer] PI PI UMR O [id number] S [id number] MEDICARE C [id number] S [id number] [employer]RE[employer]ING [id number] [employer] [id number] [employer] [id number] SP [id number] [employer] [id number] SP [id number] [employer] [id number] SP [id number] [employer] O [id number] S [id number] [employer] O [id number] S [id number] [employer] PPO P [id number] S [id number] MEDICARE [id number] SP [id number] Problems, Conditions, and Diagnoses Code Display Name Description Problem Type Effective Dates Data Source(s) E66.8 Obesity Obesity Problem 10/27/2020 12:00:00 AM JACKIE BUSBY ([facility]) Surgeries/Procedures Procedure Description Date Indications Data Source(s) ARTHROCENTESIS ASPIR&/INJECTION MAJOR JT/BURSA 021 12:00:00 AM EDT MEDISAAC ([facility] OFFICE OUTPATIENT VISIT 25 MINUTES 07/19/2021 12:00:00 AM EDT MED[facility] ([facility] ) Chronic Care Management Services Ea Addl 20 Min 2020 12:00:00 AM EDT [facility] ([facility]) Chronic Care MGMT 20 Mins Clinical Staff Time Per Calendar M ont 07/06/2021 12:00:00 AM EDT MEDENT ([facility]) MYOCRD IMAGE PET PERFUS MULTPL STUDY REST/STRESS 05/10 12:00:00 AM EDT MED[facility] ([facility]) CV STRS TST XERS&/OR RX CONT ECG I&R ONLY 05/10/2021 1 2:00:00 AM EDT MED[facility] ([facility]) ECG ROUTINE ECG W/LEAST 12 LDS W/I&R 04/26/2021 12:00: 00 AM EDT MED[facility] ([facility]) OFFICE OUTPATIENT VISIT 25 MINUTES 04/26/2021 12:00:00 AM EDT MED[facility] ([facility]) ARTHROCENTESIS ASPIR&/INJECTION MAJOR JT/BURSA 021 12:00:00 AM EDT [facility] ([facility] ) Chronic Care Management Services Ea Addl 20 Min 2020 12:00:00 AM EDT [facility] ([facility]) Chronic Care MGMT 20 Mins Clinical Staff Time Per Calendar M [facility] 04/14/2021 12:00:00 AM EDT MEDENT ([facility]) Chronic Care MGMT 20 Mins Clinical Staff Time Per Calendar M [facility] 03/02/2021 12:00:00 AM EDT MED[facility] ([facility]) Chronic Care Management Services Ea Addl 20 Min 2020 12:00:00 AM EST MED[facility] ([facility]) Chronic Care MGMT 20 Mins Clinical Staff Time Per Calendar M [facility] 12/29/2020 12:00:00 AM EST MED[facility] ([facility]) ECHO TTHRC R-T 2D W/WOM-MODE COMPL SPEC&COLR DOP 11/30 12:00:00 AM EST MED[facility] ([facility]) Chronic Care Management Services Ea Addl 20 Min 2020 12:00:00 AM EST MED[facility] ([facility]) Chronic Care MGMT 20 Mins Clinical Staff Time Per Calendar M [facility] 11/23/2020 12:00:00 AM EST MED[facility] ([facility]) ECG ROUTINE ECG W/LEAST 12 LDS W/I&R 10/27/2020 12:00: 00 AM EST [facility] ([facility]) OFFICE OUTPATIENT VISIT 25 MINUTES 10/27/2020 12:00:00 AM EST MED[facility] ([facility]) ARTHROCENTESIS ASPIR&/INJECTION MAJOR JT/BURSA 020 12:00:00 AM EST [facility] ([facility]) Results ID Date Data Source [id number] 09/06/2021 12:00:00 AM EST [facility] Name Value Range Interpretation Code Description Data Camille rce(s) Supporting Document(s) SARS-CoV-2 (COVID-19) RNA [Presence] in Respiratory specimen by CARLA with probe detection Not detected [facility] This lab was ordered by [employer] and r eported by [employer]. ID Date Data Source [id number] 09/06/2021 12:00:00 AM EST [facility] Name Value Range Interpretation Code Description Data Camille rce(s) Supporting Document(s) SARS-COV 2 PCR (NASAL SWAB) NEGATIVE [place] [facility] This lab was ordered by Rashaad Zacarias #15 and reported by [employer]. ID Date Data Source [id number] 08/01/2021 01:10:00 PM EDT [facility] Name Value Range Interpretation Code Description Data Camille rce(s) Supporting Document(s) [id number] NOT DETECTED [facility] A Not Detected [...] decisions.Test Method: Nucleic Acid Amplification Test includingreverse automobile racer polymerase chain reaction (RT-PCR)and transcr iption mediated [...] health care providers andpatients using the following websites:https://www.[employer]/home/Covid-19/HCP/NAAT/fact-fgfsr7dcqh s://www.[employer]/home/Covid-19/Patients/NAAT/fact-nwbot9Jfd to the current public health emergency, [facility] is accepting samples from appropriateclinical sources collected using wide variety ofswabs and transport media for COVID-19. Not detectedtest results derived from specimens received in non-commercially manufactured viral collection kits or thosenot yet authorized by FDA for COVID-19 testing should becautiously evaluated and take extra precautions such asadditional clinical monitoring, including collectionof an additional specimen.Additional information about COVID-19 can be foundat the [employer] website:www.[facility]/Covid19. ID Date Data Source [id number] 07/31/2021 12:19:00 PM EDT [facility] Name Value Range Interpretation Code Description Data Camille rce(s) Supporting Document(s) SARS-COV-2 RNA RESP QL CARLA+PROBE Not detected [facility] This lab was ordered by [facility] [id number] and rep orted by [employer] [place]. ID Date Data Source [id number] 11/30/2020 09:07:00 AM EST [facility] ([facility]) Name Value Range Interpretation Code Description Data Camille rce(s) Supporting Document(s) Laboratory test finding (navigational concept) Laboratory test result MED[facility] ([facility]) ID Date Data Source [id number] 11/09/2020 10:18:00 AM EST [facility] Name Value Range Interpretation Code Description Data Camille rce(s) Supporting Document(s) White Blood Count 6.3 4.3-10.9 [facility] Red Blood Count 4.40 4.70-6.20 [facility] ([facility]) Hemoglobin 12.7 13.0-17.0 [facility] ([facility]) Hematocrit 40.4 39.0-50.0 [facility] ([facility]) Platelets 269 130-400 [facility] ([facility]) ID Date Data Source [id number] 11/09/2020 10:18:00 AM EST [facility] ([facility]) Name Value Range Interpretation Code Description Data Camille rce(s) Supporting Document(s) Triglycerides 230 [facility] ([facility]) Cholesterol 194 120-200 [facility] ([facility]) Cholesterol in LDL [Mass/volume] in Serum or Plasma by calculation 97 [facility] ([facility]) HDL 51 40-60 [facility] ([facility]) Chol/HDL Ratio 3.803 [facility] ([facility]) ID Date Data Source [id number] 11/09/2020 10:18:00 AM EST [facility] ([facility]) Name Value Range Interpretation Code Description Data Camille rce(s) Supporting Document(s) Albumin [Mass/volume] in Serum or Plasma 4.2 [facility] ([facility]) Alanine aminotransferase [Enzymatic activity/volume] in Serum or Pl asma 40 [facility] ([facility]) Calcium [Mass/volume] in Serum or Plasma 9.2 [facility] ([facility]) Chloride [Moles/volume] in Serum or Plasma 104 [facility] ([facility]) Carbon dioxide, total [Moles/volume] in Serum or Plasma 32 [facility] ([facility]) Potassium [Moles/volume] in Serum or Plasma 3.7 [facility] ([facility]) Alkaline phosphatase [Enzymatic activity/volume] in Serum or Plasma 9 9 [facility] ([facility]) Protein [Mass/volume] in Serum or Plasma 7.0 [facility] ([facility]) Sodium 142 [facility] ([facility] Urea nitrogen [Mass/volume] in Serum or Plasma 23 [facility] ([facility]) Glucose 161 70-100 [facility] ([facility]) Aspartate aminotransferase [Enzymatic activity/volume] in Serum or Plasma 17 [facility] ([facility]) Creatinine For GFR 0.84 [facility] ([facility]) ID Date Data Source [id number] 10/10/2020 09:33:00 AM EST [facility] ([facility]) Name Value Range Interpretation Code Description Data Camille rce(s) Supporting Document(s) Hemoglobin A1c 6.8 % [facility] ([facility]) <content>REFERENCE RANGES:</content><br/ ><content></content>
<content><=5.6% NORMAL</content>
<content>5.7-6.4% SUGGESTS IMPAIRED GLUCOSE METABOLISM/PREDIABETIC</content>
<content>>= 6.5% ABNORMAL</content>
<content></content> Estimated Average Glucose 148 mg/dL 60-110 MED[facility] ([facility]) ID Date Data Source [id number] 10/10/2020 09:33:00 AM EST [facility] ([facility]) Name Value Range Interpretation Code Description Data Camille rce(s) Supporting Document(s) Alt/SGPT 32 U/L 12-78 [facility] ([facility]) Alkaline Phosphatase 109 U/L 45-117 MED[facility] ([facility]) Ast/Sgot 14 U/L 7-37 [facility] ([facility]) Bilirubin,Direct 0.2 mg/dL 0.0-0.2 [facility] ([facility]) Total Protein 7.2 GM/DL 6.4-8.2 [facility] ([facility]) Bilirubin,Total 0.5 mg/dL 0.2-1.0 [facility] ([facility]) Albumin/Globulin Ratio 1.3 1.2-2.2 [facility] ([facility]) Albumin 4.1 GM/DL 3.2-5.2 [facility] ([facility]) Procedure Social History Code Duration Value Status Description Data Source(s ) Smoking 04/26/2021 12:00:00 AM EDT Patient has never smoked co mpleted Patient has never smoked [facility] ([facility]) Vital Signs ID Date Data Source UNK Name Value Range Interpretation Code Description Data Source(s) Body weight 199.00 [lb_av] 199.00 [lb_av] MEDEN T ([facility]) Body height 61 [in_i] 61 [in_i] [facility] ([facility]) 5'1" Body mass index (BMI) [Ratio] 37.6 kg/m2 37.6 k g/m2 MED[facility] ([facility]) Heart rate 57 /min 57 /min [facility] ([facility]) Systolic blood pressure--sitting 118 mm[Hg] 118 mm[Hg] MED[facility] ([facility]) Ra, large cuff Diastolic blood pressure--sitting 74 mm[Hg] 74 mm[Hg] MED[facility] ([facility]) Ra, large cuff Body height 61 [in_i] 61 [in_i] [facility] ([facility]) 5'1" Body mass index (BMI) [Ratio] 38.7 kg/m2 38.7 k g/m2 [facility] ([facility]) Heart rate 72 /min 72 /min [facility] ([facility]) Respiratory rate 16 /min 16 /min MED[facility] ( [facility]) nonlabored Systolic blood pressure--sitting 132 mm[Hg] 132 mm[Hg] MEDENT ([facility]) Ra, large cuff Diastolic blood pressure--sitting 84 mm[Hg] 84 mm[Hg] MED[facility] ([facility]) Ra, large cuff Body weight 205.00 [lb_av] 205.00 [lb_av] MEDEN T ([facility])
[2021-09-15 22:39] LABS: BASO # 0.1 10^3/uL (0.0-0.2); BASO % 0.5 % (0.0-1.0); EOS # 0.2 10^3/uL (0.0-0.5); EOS % 2.1 % (0.0-3.0); HEMATOCRIT 39.5 % (36.0-47.0); HEMOGLOBIN 12.8 g/dl (12.0-15.5); LYMPH # 1.8 10^3/uL (1.5-5.0); LYMPH % 19.2 % (24.0-44.0); MEAN CORPUSCULAR HEMOGLOBIN 28.8 pg (27.0-33.0); MEAN CORPUSCULAR HGB CONC 32.4 g/dl (32.0-36.5); MEAN CORPUSCULAR VOLUME 88.8 fl (80.0-96.0); MONO # 0.7 10^3/uL (0.0-0.8); MONO % 7.7 % (2.0-8.0); NEUTROPHILS # 6.5 10^3/uL (1.5-8.5); NEUTROPHILS % 70.2 % (36.0-66.0); PLATELET COUNT, AUTOMATED 268 10^3/uL (150-450); RED BLOOD COUNT 4.45 10^6/uL (4.00-5.40); WHITE BLOOD COUNT 9.2 10^3/uL (4.0-10.0)
[2021-09-15 23:14] LABS: CK-MB VALUE MASS 3.6 NG/ML (<3.6); CPK CREATINE PHOSPHOKINASE 329 U/L (26-192); MB/CK RELATIVE INDEX 1.09 (< OR =4); TROPONIN I < 0.02 NG/ML (< 0.10)
[2021-09-15 23:19] LABS: ALBUMIN 4.3 GM/DL (3.2-5.2); ALT/SGPT 40 U/L (12-78); BILIRUBIN,DIRECT 0.2 MG/DL (0.0-0.2); BILIRUBIN,TOTAL 0.6 MG/DL (0.2-1.0); BLOOD UREA NITROGEN 19 MG/DL (7-18); CALCIUM LEVEL 9.5 MG/DL (8.8-10.2); CARBON DIOXIDE LEVEL 30 MEQ/L (21-32); CHLORIDE LEVEL 107 MEQ/L (98-107); CREATININE FOR GFR 0.88 MG/DL (0.55-1.30); FREE T4 1.09 NG/DL (0.76-1.46); GLOMERULAR FILTRATION RATE > 60.0 (>45); GLUCOSE, FASTING 144 MG/DL (70-100); LIPASE 98 U/L (73-393); NT-PRO BNP 29 PG/ML (<125); POTASSIUM SERUM 3.9 MEQ/L (3.5-5.1); SODIUM LEVEL 141 MEQ/L (136-145); TOTAL PROTEIN 7.8 GM/DL (6.4-8.2)
[2021-09-16] MEDS ORDERED: METAL LOCK LOOP XX ONE (03:12)
== END 2021-09-15 23:39 | disposition home or self-care (01) ==
LOC: M ED 13:28
DX: R60.0 Localized edema (principal); E03.9 Hypothyroidism, unspecified; I25.2 Old myocardial infarction; I10 Essential (primary) hypertension; E78.5 Hyperlipidemia, unspecified; K57.30 Diverticulosis of large intestine without perforation or abscess without bleeding; K21.9 Gastro-esophageal reflux disease without esophagitis; F41.9 Anxiety disorder, unspecified; Z88.8 Allergy status to other drugs, medicaments and biological substances; Z79.899 Other long term (current) drug therapy

== ENCOUNTER → 2021-11-03 | Outpatient (CLI) | payer MEDICARE, OTHER ==
[2021-11-03 12:42] LABS: FREE T3 2.4 PG/ML (2.2-4.0); FREE T4 0.93 NG/DL (0.76-1.46); THYROID STIMULATING HORMONE 2.12 uIU/ML (0.358-3.740)
== END ==
LOC: M WUC 09:27
PROVIDERS: ATTEND Family Medicine
DX: E07.9 Disorder of thyroid, unspecified (principal)

== ENCOUNTER → 2021-12-25 | Outpatient (CLI) | payer MEDICARE, OTHER ==
[2021-12-25 17:05] LABS: HEMOGLOBIN 13.3 g/dl (12.0-15.5); MEAN CORPUSCULAR HEMOGLOBIN 28.5 pg (27.0-33.0); MEAN CORPUSCULAR HGB CONC 31.7 g/dl (32.0-36.5); MEAN CORPUSCULAR VOLUME 90.1 fl (80.0-96.0); PLATELET COUNT, AUTOMATED 296 10^3/uL (150-450); RED BLOOD COUNT 4.66 10^6/uL (4.00-5.40); WHITE BLOOD COUNT 7.8 10^3/uL (4.0-10.0)
[2021-12-25 17:47] LABS: ALBUMIN 4.3 GM/DL (3.2-5.2); ALT/SGPT 45 U/L (12-78); BILIRUBIN,TOTAL 0.5 MG/DL (0.2-1.0); BLOOD UREA NITROGEN 15 MG/DL (7-18); CALCIUM LEVEL 9.3 MG/DL (8.8-10.2); CARBON DIOXIDE LEVEL 32 MEQ/L (21-32); CHLORIDE LEVEL 103 MEQ/L (98-107); CREATININE FOR GFR 0.84 MG/DL (0.55-1.30); GLOMERULAR FILTRATION RATE > 60.0 (>45); GLUCOSE, FASTING 271 MG/DL (70-100); NT-PRO BNP 46 PG/ML (<125); POTASSIUM SERUM 3.9 MEQ/L (3.5-5.1); SODIUM LEVEL 141 MEQ/L (136-145); TOTAL PROTEIN 7.6 GM/DL (6.4-8.2)
== END ==
LOC: M WUC 11:41
PROVIDERS: ATTEND Physician Assistant
DX: R00.2 Palpitations (principal); I50.32 Chronic diastolic (congestive) heart failure

== ENCOUNTER → 2022-07-17 | Outpatient (CLI) | payer MEDICARE, OTHER ==
[2022-07-17 11:44] LABS: CHOLESTEROL RISK RATIO 4.191 (<5)
== END ==
LOC: M WUC 08:12
PROVIDERS: ATTEND Physician Assistant
DX: I25.10 Atherosclerotic heart disease of native coronary artery without angina pectoris (principal)

== ENCOUNTER → 2023-01-14 | Outpatient (CLI) | payer MEDICARE, OTHER ==
[2023-01-14 12:39] LABS: CHOLESTEROL RISK RATIO 5.04 (<5); HDL CHOLESTEROL 35.9 MG/DL (>40); LDL CHOLESTEROL 96.5 MG/DL (<100); NON-HDL-C 145.1 MG/DL
== END ==
LOC: M WUC 08:30
PROVIDERS: ATTEND Physician Assistant
DX: I25.10 Atherosclerotic heart disease of native coronary artery without angina pectoris (principal)

== ENCOUNTER → 2023-01-14 | Outpatient (CLI) | payer MEDICARE, OTHER ==
[2023-01-14 12:08] LABS: BASO # 0.1 10^3/uL (0.0-0.2); BASO % 0.9 % (0.0-1.0); EOS # 0.3 10^3/uL (0.0-0.5); EOS % 3.6 % (0.0-3.0); HEMATOCRIT 40.3 % (36.0-47.0); HEMOGLOBIN 12.9 g/dl (12.0-15.5); LYMPH # 1.5 10^3/uL (1.5-5.0); LYMPH % 21.6 % (24.0-44.0); MEAN CORPUSCULAR HEMOGLOBIN 28.3 pg (27.0-33.0); MEAN CORPUSCULAR VOLUME 88.4 fl (80.0-96.0); MONO # 0.5 10^3/uL (0.0-0.8); MONO % 7.7 % (2.0-8.0); NEUTROPHILS # 4.6 10^3/uL (1.5-8.5); NEUTROPHILS % 65.9 % (36.0-66.0); PLATELET COUNT, AUTOMATED 287 10^3/uL (150-450); RED BLOOD COUNT 4.56 10^6/uL (4.00-5.40)
[2023-01-14 12:38] LABS: CREATININE, URINE 135.8 MG/DL; CREATININE,RANDOM URINE 135.8 MG/DL; MAU/CREAT RATIO 8.1 MCG/MG (0.0-30.0)
[2023-01-14 12:42] LABS: ALBUMIN 4.2 G/DL (3.2-5.2); ALKALINE PHOSPHATASE 110 U/L (46-116); ALT/SGPT 32 U/L (7.0-40); AST/SGOT 22 U/L (<34); BILIRUBIN,TOTAL 0.8 MG/DL (0.3-1.2); BLOOD UREA NITROGEN 17 MG/DL (9-23); CALCIUM LEVEL 8.8 MG/DL (8.3-10.6); CARBON DIOXIDE LEVEL 32 MMOL/L (20-31); CHLORIDE LEVEL 103 MMOL/L (98-107); CHOLESTEROL LEVEL 179 MG/DL (<200); CHOLESTEROL RISK RATIO 4.86 (<5); CREATININE FOR GFR 0.68 MG/DL (0.55-1.30); GLOMERULAR FILTRATION RATE > 60.0 (>45); GLUCOSE, FASTING 163 MG/DL (74-106); HDL CHOLESTEROL 36.8 MG/DL (>40); LDL CHOLESTEROL 94.2 MG/DL (<100); NON-HDL-C 142.2 MG/DL; POTASSIUM SERUM 4.2 MMOL/L (3.5-5.1); SODIUM LEVEL 142 MMOL/L (136-145); THYROID STIMULATING HORMONE 2.835 uIU/ML (0.55-4.78); TOTAL 25(OH) VITAMIN D 31.8 NG/ML (20.0-100.0); TRIGLYCERIDES LEVEL 240 MG/DL (<150)
[2023-01-14 12:43] LABS: FREE T3 3.1 PG/ML (2.3-4.2)
[2023-01-14 12:44] LABS: FREE T4 0.92 NG/DL (0.89-1.76)
== END ==
LOC: M WUC 08:32
PROVIDERS: ATTEND Family Medicine
DX: E55.9 Vitamin D deficiency, unspecified (principal); E07.9 Disorder of thyroid, unspecified; E11.9 Type 2 diabetes mellitus without complications; I25.10 Atherosclerotic heart disease of native coronary artery without angina pectoris; Z79.899 Other long term (current) drug therapy

== ENCOUNTER → 2023-01-18 | Outpatient (CLI) | payer MEDICARE, OTHER | LOC: M WHC 07:52 | PROVIDERS: ATTEND Family Medicine | DX: Z12.31 Encounter for screening mammogram for malignant neoplasm of breast (principal) ==

== ENCOUNTER → 2023-03-05 | Outpatient (CLI) | payer MEDICARE, OTHER ==
[~2023-03-05] MED LIST changes: +FLUT50SP17; -FLUTISP
[2023-03-05 14:16] LABS: HEMATOCRIT 39.7 % (36.0-47.0); HEMOGLOBIN 12.7 g/dl (12.0-15.5); MEAN CORPUSCULAR HEMOGLOBIN 28.5 pg (27.0-33.0); PLATELET COUNT, AUTOMATED 263 10^3/uL (150-450); RED BLOOD COUNT 4.46 10^6/uL (4.00-5.40); WHITE BLOOD COUNT 6.9 10^3/uL (4.0-10.0)
[2023-03-05 14:49] LABS: ALKALINE PHOSPHATASE 99 U/L (46-116); ALT/SGPT 24 U/L (7.0-40); AST/SGOT 20 U/L (<34); BILIRUBIN,TOTAL 0.7 MG/DL (0.3-1.2); BLOOD UREA NITROGEN 16 MG/DL (9-23); CALCIUM LEVEL 9.4 MG/DL (8.3-10.6); CARBON DIOXIDE LEVEL 30 MMOL/L (20-31); CHLORIDE LEVEL 103 MMOL/L (98-107); CHOLESTEROL LEVEL 170 MG/DL (<200); CHOLESTEROL RISK RATIO 4.12 (<5); CREATININE FOR GFR 0.69 MG/DL (0.55-1.30); GLOMERULAR FILTRATION RATE > 60.0 (>45); GLUCOSE, FASTING 207 MG/DL (74-106); HDL CHOLESTEROL 41.2 MG/DL (>40); LDL CHOLESTEROL 84.4 MG/DL (<100); NON-HDL-C 128.8 MG/DL; POTASSIUM SERUM 4.3 MMOL/L (3.5-5.1); SODIUM LEVEL 140 MMOL/L (136-145); TOTAL PROTEIN 6.9 G/DL (5.7-8.2); TRIGLYCERIDES LEVEL 222 MG/DL (<150)
== END ==
LOC: M LAB 12:54
PROVIDERS: ATTEND Physician Assistant
DX: I25.10 Atherosclerotic heart disease of native coronary artery without angina pectoris (principal); I50.32 Chronic diastolic (congestive) heart failure; E78.2 Mixed hyperlipidemia

== ENCOUNTER → 2023-04-24 | Outpatient (REF) | payer MEDICARE, OTHER ==
[2023-04-24 15:00] LABS: BLOOD UREA NITROGEN 17 MG/DL (9-23); CALCIUM LEVEL 9.5 MG/DL (8.3-10.6); CARBON DIOXIDE LEVEL 33 MMOL/L (20-31); CHLORIDE LEVEL 102 MMOL/L (98-107); CREATININE FOR GFR 0.68 MG/DL (0.55-1.30); GLOMERULAR FILTRATION RATE > 60.0 (>45); GLUCOSE, FASTING 154 MG/DL (74-106); POTASSIUM SERUM 3.8 MMOL/L (3.5-5.1); SODIUM LEVEL 142 MMOL/L (136-145)
== END ==
LOC: M LAB REF 12:49
PROVIDERS: ATTEND Physician Assistant
DX: I50.32 Chronic diastolic (congestive) heart failure (principal)

== ENCOUNTER → 2023-07-04 | Outpatient (CLI) | payer MEDICARE, OTHER ==
[2023-07-04 09:17] LABS: ALBUMIN 4.2 G/DL (3.2-5.2); BILIRUBIN,DIRECT 0.3 MG/DL (<0.4); BILIRUBIN,TOTAL 0.9 MG/DL (0.3-1.2)
== END ==
LOC: M RAD 07:59
PROVIDERS: ATTEND Physician Assistant Surgical
DX: K21.9 Gastro-esophageal reflux disease without esophagitis (principal); R10.11 Right upper quadrant pain

== ENCOUNTER → 2023-07-05 | Outpatient (REF) | payer MEDICARE, OTHER | LOC: M LAB REF 11:24 | PROVIDERS: ATTEND Physician Assistant Surgical | DX: K59.00 Constipation, unspecified (principal); K57.30 Diverticulosis of large intestine without perforation or abscess without bleeding; K21.9 Gastro-esophageal reflux disease without esophagitis; R10.11 Right upper quadrant pain ==

== ENCOUNTER → 2023-09-02 | Outpatient (REF) | payer MEDICARE, OTHER | LOC: M SFHCWAGY 16:56 | PROVIDERS: ATTEND Nurse Practitioner Family | DX: R30.0 Dysuria (principal) ==

== ENCOUNTER → 2023-09-24 | Outpatient (CLI) | payer MEDICARE, OTHER ==
[2023-09-24 20:19] LABS: BLOOD UREA NITROGEN 22 MG/DL (9-23); CALCIUM LEVEL 9.1 MG/DL (8.3-10.6); CARBON DIOXIDE LEVEL 30 MMOL/L (20-31); CHLORIDE LEVEL 103 MMOL/L (98-107); CREATININE FOR GFR 0.69 MG/DL (0.55-1.30); GLOMERULAR FILTRATION RATE > 60.0 (>45); GLUCOSE, FASTING 144 MG/DL (74-106); POTASSIUM SERUM 4.1 MMOL/L (3.5-5.1); SODIUM LEVEL 143 MMOL/L (136-145)
== END ==
LOC: M WUC 10:43
PROVIDERS: ATTEND Physician Assistant
DX: I50.32 Chronic diastolic (congestive) heart failure (principal)

== ENCOUNTER → 2023-10-03 | Outpatient (REF) | payer MEDICARE, OTHER ==
[~2023-10-03] MED LIST changes: -FLUT50SP17; +FLUTISP
[2023-10-03 15:18] LABS: AMORPHOUS SEDIMENT SMALL (NEGATIVE); APPEARANCE, URINE TURBID (CLEAR); BACTERIA, URINE AUTO NEGATIVE (NEGATIVE); BILIRUBIN, URINE AUTO NEGATIVE (NEGATIVE); BLOOD, URINE BLOOD NEGATIVE (NEGATIVE); COLOR, URINE AMBER (YELLOW); GLUCOSE, URINE (UA) AUTO NEGATIVE (NEGATIVE); KETONE, URINE AUTO NEGATIVE (NEGATIVE); LEUKOCYTE ESTERASE, URINE AUTO NEGATIVE (NEGATIVE); MUCUS, URINE LARGE (NEGATIVE); NITRITE, URINE AUTO NEGATIVE (NEGATIVE); PROTEIN, URINE AUTO NEGATIVE (NEGATIVE); RBC, URINE AUTO 0 /HPF (0-3); SPECIFIC GRAVITY URINE AUTO 1.019 (1.002-1.035); SQUAMOUS EPITHELIAL CELL UR AU 3 /HPF (0-6); UROBILINOGEN, URINE AUTO 0.2 mg/dL (0.0-2.0); WBC, URINE AUTO 2 /HPF (0-3)
== END ==
LOC: M SFHCWAGY 13:09
PROVIDERS: ATTEND Nurse Practitioner Family
DX: N39.0 Urinary tract infection, site not specified (principal); R39.15 Urgency of urination

== ENCOUNTER → 2023-12-12 | Outpatient (CLI) | payer MEDICARE, OTHER | LOC: M EKG 15:33 | PROVIDERS: ATTEND Physician Assistant | DX: R00.2 Palpitations (principal) ==

== ENCOUNTER → 2024-01-22 | Outpatient (REF) | payer MEDICARE, OTHER ==
[2024-01-22 14:03] LABS: HEMATOCRIT 39.1 % (36.0-47.0); HEMOGLOBIN 12.8 g/dl (12.0-15.5); MEAN CORPUSCULAR HEMOGLOBIN 29.8 pg (27.0-33.0); MEAN CORPUSCULAR HGB CONC 32.7 g/dl (32.0-36.5); MEAN CORPUSCULAR VOLUME 90.9 fl (80.0-96.0); PLATELET COUNT, AUTOMATED 303 10^3/uL (150-450)
[2024-01-22 14:35] LABS: BLOOD UREA NITROGEN 18 MG/DL (9-23); CALCIUM LEVEL 9.2 MG/DL (8.3-10.6); CARBON DIOXIDE LEVEL 29 MMOL/L (20-31); CHLORIDE LEVEL 106 MMOL/L (98-107); CREATININE FOR GFR 0.66 MG/DL (0.55-1.30); GLOMERULAR FILTRATION RATE > 60.0 (>45); GLUCOSE, FASTING 126 MG/DL (74-106); MAGNESIUM LEVEL 1.8 MG/DL (1.8-2.4); POTASSIUM SERUM 3.9 MMOL/L (3.5-5.1); SODIUM LEVEL 143 MMOL/L (136-145)
[2024-01-22 14:37] LABS: THYROID STIMULATING HORMONE 2.022 uIU/ML (0.55-4.78)
== END ==
LOC: M LABWUC 13:05
PROVIDERS: ATTEND Physician Assistant
DX: R00.2 Palpitations (principal); R06.02 Shortness of breath

== ENCOUNTER → 2024-04-01 | Outpatient (CLI) | payer MEDICARE, OTHER ==
[~2024-04-01] MED LIST changes: -ESOM0.1C; +ESOM20CA2
[2024-04-01 10:42] LABS: HEMOGLOBIN 12.3 g/dl (12.0-15.5); MEAN CORPUSCULAR HGB CONC 32.4 g/dl (32.0-36.5); MEAN CORPUSCULAR VOLUME 89.6 fl (80.0-96.0); PLATELET COUNT, AUTOMATED 250 10^3/uL (150-450); RED BLOOD COUNT 4.24 10^6/uL (4.00-5.40); WHITE BLOOD COUNT 6.7 10^3/uL (4.0-10.0)
[2024-04-01 11:12] LABS: ALBUMIN 3.9 G/DL (3.2-5.2); ALKALINE PHOSPHATASE 87 U/L (46-116); ALT/SGPT 29 U/L (7.0-40); AST/SGOT 20 U/L (<34); BILIRUBIN,TOTAL 0.8 MG/DL (0.3-1.2); BLOOD UREA NITROGEN 16 MG/DL (9-23); CALCIUM LEVEL 9.3 MG/DL (8.3-10.6); CARBON DIOXIDE LEVEL 31 MMOL/L (20-31); CHLORIDE LEVEL 105 MMOL/L (98-107); CHOLESTEROL LEVEL 173 MG/DL (<200); CHOLESTEROL RISK RATIO 4.21 (<5); CREATININE FOR GFR 0.58 MG/DL (0.55-1.30); GLOMERULAR FILTRATION RATE > 60.0 (>45); GLUCOSE, FASTING 131 MG/DL (74-106); LDL CHOLESTEROL 91.8 MG/DL (<100); POTASSIUM SERUM 3.6 MMOL/L (3.5-5.1); SODIUM LEVEL 143 MMOL/L (136-145); TOTAL PROTEIN 6.8 G/DL (5.7-8.2); TRIGLYCERIDES LEVEL 201 MG/DL (<150)
== END ==
LOC: M WUC 08:42
PROVIDERS: ATTEND Physician Assistant
DX: I25.10 Atherosclerotic heart disease of native coronary artery without angina pectoris (principal); I50.32 Chronic diastolic (congestive) heart failure; E78.2 Mixed hyperlipidemia

== ENCOUNTER → 2024-05-13 | Outpatient (CLI) | payer MEDICARE, OTHER | LOC: M WHC 08:37 | PROVIDERS: ATTEND Family Medicine | DX: Z12.31 Encounter for screening mammogram for malignant neoplasm of breast (principal) ==

== ENCOUNTER → 2024-10-12 | Outpatient (CLI) | payer MEDICARE, OTHER ==
[2024-10-12 13:54] LABS: BLOOD UREA NITROGEN 20 MG/DL (9-23); CALCIUM LEVEL 9.1 MG/DL (8.3-10.6); CARBON DIOXIDE LEVEL 31 MMOL/L (20-31); CHLORIDE LEVEL 105 MMOL/L (98-107); CREATININE FOR GFR 0.64 MG/DL (0.55-1.30); GLOMERULAR FILTRATION RATE > 60.0 (>39); GLUCOSE, FASTING 108 MG/DL (74-106); SODIUM LEVEL 144 MMOL/L (136-145)
== END ==
LOC: M WUC 10:27
PROVIDERS: ATTEND Physician Assistant
DX: I50.32 Chronic diastolic (congestive) heart failure (principal)

== ENCOUNTER → 2025-02-20 | Outpatient (REF) | payer MEDICARE, OTHER ==
[~2025-02-20] MED LIST changes: -ALIG4CAP PO; +ALIG4CAP3 PO
== END ==
LOC: M LAB REF 18:43
PROVIDERS: ATTEND Physician Assistant
DX: R30.0 Dysuria (principal)

== ENCOUNTER 2025-05-25 13:22 | Emergency (ER) | payer MEDICARE, OTHER ==
[~2025-05-25] VITALS: Ht 154.9 cm; Wt 86.4 kg
[2025-05-25 13:56] LABS: BASO # 0.1 10^3/uL (0.0-0.2); BASO % 0.7 % (0.0-1.0); EOS # 0.1 10^3/uL (0.0-0.5); EOS % 1.2 % (0.0-3.0); LYMPH # 1.6 10^3/uL (1.5-5.0); LYMPH % 21.5 % (24.0-44.0); MONO # 0.6 10^3/uL (0.0-0.8); MONO % 7.2 % (2.0-8.0); NEUTROPHILS # 5.3 10^3/uL (1.5-8.5); NEUTROPHILS % 69.1 % (36.0-66.0); PLATELET COUNT, AUTOMATED 282 10^3/uL (150-450)
[2025-05-25 14:33] LABS: CALCIUM LEVEL 9.5 MG/DL (8.3-10.6); CARBON DIOXIDE LEVEL 28.0 MMOL/L (20-31); CHLORIDE LEVEL 100.0 MMOL/L (98-107); CK-MB VALUE MASS 3.3 NG/ML (<3.6); CPK CREATINE PHOSPHOKINASE 296.0 U/L (34-145); CREATININE FOR GFR 0.72 MG/DL (0.55-1.30); GLOMERULAR FILTRATION RATE 89.9 (>39); MB/CK RELATIVE INDEX 1.11 (< OR =4); POTASSIUM SERUM 3.3 MMOL/L (3.5-5.1); SODIUM LEVEL 141.0 MMOL/L (136-145)
[2025-05-25 15:11] LABS: CK-MB VALUE MASS 2.9 NG/ML (<3.6)
[2025-05-25 15:13] LABS: CPK CREATINE PHOSPHOKINASE 266.0 U/L (34-145); MB/CK RELATIVE INDEX 1.09 (< OR =4)
[2025-05-25] MEDS: POTASSIUM CHLORIDE 10MEQ SR TABLET PO ONE (15:38)
[2025-05-25] MEDS: ASPIRIN 81 MG CHEWABLE TABLET PO ONE (15:39)
[2025-05-25] MEDS ORDERED: ISOVUE-370 76% 100 ML VIAL As Ordered ONE (15:47)
[2025-05-25 17:30] VITALS: BP 131/70; TEMP 97.1; O2SAT 99
== END 2025-05-25 17:40 | disposition home or self-care (01) ==
LOC: M ED 13:22
DX: R07.9 Chest pain, unspecified (principal); R00.1 Bradycardia, unspecified; I50.22 Chronic systolic (congestive) heart failure; I25.2 Old myocardial infarction; E11.9 Type 2 diabetes mellitus without complications; I11.0 Hypertensive heart disease with heart failure; K21.9 Gastro-esophageal reflux disease without esophagitis; E78.5 Hyperlipidemia, unspecified; Z88.8 Allergy status to other drugs, medicaments and biological substances; Z79.1 Long term (current) use of non-steroidal anti-inflammatories (NSAID); Z79.899 Other long term (current) drug therapy
CPT/HCPCS: 36415; 71045; 71275; 80048; 82550; 82553; 84484; 85025; 93005; 93041; 94760; 99285; Q9967

== ENCOUNTER → 2025-06-29 | Outpatient (CLI) | payer MEDICARE, OTHER | LOC: M PLAIMG 09:36 | PROVIDERS: ATTEND Physician Assistant | DX: Q23.0 Congenital stenosis of aortic valve (principal); I77.810 Thoracic aortic ectasia; I08.9 Rheumatic multiple valve disease, unspecified ==

== ENCOUNTER → 2025-10-13 | Outpatient (CLI) | payer MEDICARE, OTHER ==
[2025-10-13 13:16] LABS: CALCIUM LEVEL 8.8 MG/DL (8.3-10.6); CARBON DIOXIDE LEVEL 31 MMOL/L (20-31); CHLORIDE LEVEL 104 MMOL/L (98-107); CREATININE FOR GFR 0.67 MG/DL (0.55-1.30); GLOMERULAR FILTRATION RATE > 90.0 (>39); POTASSIUM SERUM 4.4 MMOL/L (3.5-5.1); SODIUM LEVEL 143 MMOL/L (136-145)
== END ==
LOC: M WUC 09:00
PROVIDERS: ATTEND Physician Assistant
DX: I50.32 Chronic diastolic (congestive) heart failure (principal)